=== PATIENT | male | born 1960 ===

== ENCOUNTER 2018-04-25 14:44 | Inpatient (IN) | payer OTHER ==
[2018-04-25] MEDS ORDERED: ACETAMINOPHEN TAB 325 MG TAB PO PRN (17:04)
[2018-04-25] MEDS ORDERED: ALPRAZolam 0.25 MG TAB PO PRN (17:04)
[2018-04-25] MEDS ORDERED: NALOXONE 0.4 MG/ML 1 ML VIAL IV PRN (17:04)
[2018-04-25] MEDS ORDERED: HYDROcodone/APAP 5-325MG 1 EACH TAB PO PRN (17:08)
[2018-04-25] MEDS ORDERED: ONDANSETRON 4 MG/2 ML VIAL IVP PRN (17:08)
[2018-04-25] MEDS ORDERED: TEMAZEPAM 15 MG CAP PO PRN (17:08)
[2018-04-25] MEDS ORDERED: MORPHINE SULFATE 2 MG/ML SYRINGE IVP PRN (17:24)
[2018-04-25 17:39] VITALS: BMI 40.1
--- NOTE | 2018-04-25 17:51 | XR ---
EXAMINATION TYPE: XR chest 1V portable DATE OF EXAM: 04/25/2018 COMPARISON: NONE HISTORY: Chest pain TECHNIQUE: Single frontal view of the chest is obtained. FINDINGS: There is some linear density at the left lung base. The other lung elder are clear. There is no heart failure. There is no sign of pleural effusion. IMPRESSION: Atelectasis at the left lung base. Normal heart.
[2018-04-25 18:01] LABS: INR 1.1 (<1.2)
[2018-04-25 18:02] LABS: Prothrombin Time 10.9 sec (9.0-12.0)
[2018-04-25 18:07] LABS: Albumin 3.8 g/dL (3.5-5.0); Basophils % (A) 0 %; Calcium 8.5 mg/dL (8.4-10.2); Eosinophils % (A) 0 %; HCT 40.3 % (39.0-53.0); HGB 14.1 gm/dL (13.0-17.5); Lymphocytes # (A) 1.1 k/uL (1.0-4.8); Lymphocytes % (A) 9 %; MCHC 35.1 g/dL (31.0-37.0); MCV 91.3 fL (80.0-100.0); Magnesium 2.3 mg/dL (1.6-2.3); Mean Platelet Volume 8.2; Monocytes # (A) 0.7 k/uL (0-1.0); Monocytes % (A) 6 %; Neutrophils # (A) 9.9 k/uL (1.3-7.7); Neutrophils % (A) 83 %; Phosphorus 4.8 mg/dL (2.5-4.5); Platelet Count 267 k/uL (150-450); Potassium 3.4 mmol/L (3.5-5.1); RBC 4.42 m/uL (4.30-5.90); RDW 12.7 % (11.5-15.5); Total Protein 6.8 g/dL (6.3-8.2)
[2018-04-25 18:11] LABS: Glucose,Whole Blood 284 mg/dL (75-99)
[2018-04-25] MEDS: SODIUM CHLORIDE 0.9% 1,000 ML IV SCH (18:14)
[2018-04-25] MEDS: INSULIN ASPART 100 UNIT/ML 1 ML 10 ML VIAL SQ SCH ×2 (18:14→20:17)
[2018-04-25 18:59] LABS: Appearance,Urine Clear (Clear); Bilirubin,Urine Negative (Negative); Blood,Urine Negative (Negative); Color,Urine Light Yellow; Glucose,Urine (UA) 4+ (Negative); Ketones,Urine Negative (Negative); Leukocyte Esterase,Urine Negative (Negative); Nitrite,Urine Negative (Negative); PH, Urine 5.5 (5.0-8.0); Protein,Urine Trace (Negative); Specific Gravity,Urine 1.007 (1.001-1.035); Urobilinogen,Urine <2.0 mg/dL (<2.0)
[2018-04-25] MEDS: INSULIN NPH/REG INSULIN 70/30 300 UNIT/3 ML VIAL SQ SCH (19:31)
[2018-04-25 20:09] LABS: Glucose,Whole Blood 478 mg/dL (75-99)
[2018-04-25 20:09] LABS: Glucose,Whole Blood 417 mg/dL (75-99)
[2018-04-25] MEDS: PANTOPRAZOLE 40 MG/10 ML VIAL IVP SCH (20:18)
[2018-04-25] MEDS: CARVEDILOL 12.5 MG TAB PO SCH (20:18)
[2018-04-25] MEDS: HEPARIN SODIUM,PORCINE 5,000 UNIT/ML 1 ML VIAL SQ SCH (20:18)
--- NOTE | 2018-04-25 21:37 | HP ---
HISTORY AND PHYSICAL CHIEF COMPLAINTS: Nausea, vomiting and renal failure. HISTORY OF PRESENT ILLNESS: This 57-year-old gentleman with a past medical history of diabetes type 2, history of chronic kidney disease, hypertension, hyperlipidemia, CHF, being followed by in the outpatient setting was apparently having nausea, vomiting, and feeling tired and weak for the last several days. The patient is unable to keep anything down and the patient presented to [facility] and subsequently patient referred to [facility] for further evaluation and treatment. The patient was found to have creatinine around 5 indicating acute renal failure. The patient also had some headache. Patient was taking Motrin for the same. The troponins are negative. Patient was also hypertensive. Blood pressure 77/40 after a bolus of 2 L of fluids, the blood pressure improved to 114/80. The patient has uncontrolled diabetes mellitus in the 400s and the patient was referred directly and admitted. The patient admitted as a direct admission for further evaluation and treatment. The CT scan did not show any acute abnormality. There is no history of fever, rigors. No history of headache, no history of any loss consciousness or seizures at this time. PAST MEDICAL HISTORY: History of CHF, chronic kidney disease, diabetes mellitus, hypertension, hyperlipidemia. MEDICATIONS: 1. Aspirin 81 mg daily. 2. Coreg 25 mg p.o. b.i.d. 3. Fenofibrate 135 mg p.o. daily. 4. Hyzaar 100/25 p.o. daily. 5. Lipitor 80 mg p.o. daily. 6. Norvasc 10 mg daily. 7. Novolin 70/30 7 units in the morning and 30 units in the evening. ALLERGIES: BEE STINGS. FAMILY HISTORY: History of CHF in the family. SOCIAL HISTORY: No history of smoking. No alcohol intake. REVIEW OF SYSTEMS: ENT: No diminished vision. No diminished hearing. CARDIOVASCULAR: As mentioned earlier. Respiration: No cough or hemoptysis. No shortness of breath. GI as mentioned earlier. mentioned earlier. Nervous system no numbness or weakness. Allergy/Immunology: No asthma hay fever. Musculoskeletal: As mentioned earlier. HEMATOLOGY/ONCOLOGY: No history of anemia. ENDOCRINE: As mentioned earlier. CONSTITUTIONAL: As mentioned earlier. Dermatology: Negative. Rheumatology: Negative. Psychiatry: As mentioned earlier. PHYSICAL EXAMINATION: Alert and oriented x3. The pulse is 74. Blood pressure 104/70, respiration 12, temperature 98.1, pulse ox 94% on room air. HEENT: Conjunctivae normal. Oral mucosa moist. NECK is no jugular venous distention. No carotid bruit. No lymph node enlargement. No thyroid enlargement Cardiovascular: S1-S2, no S3, no S4. RESPIRATORY: Breath sounds diminished in the bases. A few scattered rhonchi. No crackles. ABDOMEN: Soft, obese, nontender. No mass palpable. Legs no edema. No swelling. Nervous system: Higher functions as mentioned earlier. Moves all 4 limbs. No focal motor or sensory deficit. Lymphatics: No lymph nodes palpable in the neck, axillae or groin. Skin: No ulcer, rash or bleeding. Joints: No active deforming arthropathy. LABS: Previous labs are reviewed. Otherwise current labs are not available. ASSESSMENT: 1. Acute renal failure possibly combination of prerenal renal failure and dehydration, medication induced. 2. Diabetic nephropathy. 3. Diabetes mellitus type 2, uncontrolled with hyperglycemia. 4. History of congestive heart failure. 5. History of hypertension. 6. Hyperlipidemia. RECOMMENDATIONS AND DISCUSSION: In this 57-year-old gentleman who presented with multiple complex medical issues , at this time, I recommend to continue current medications, continue symptomatic treatment. I would recommend hold Hyzaar at this time and we will continue to monitor. I would also check a creatine kinase. Cardiology and Nephrology evaluations. Otherwise , I would also recommend a 2D echo with Doppler. Guarded prognosis because of the multiple medical issues and further recommendations to follow and we will monitor Accu- Cheks as well. See orders for details. further recommendations to follow. A copy of dictation being forwarded to who is the primary physician. MMODL / IJN: [id number] / PAWEL
[2018-04-26 07:00] LABS: Glucose,Whole Blood 119 mg/dL (75-99)
[2018-04-26 07:45] LABS: Calcium 8.4 mg/dL (8.4-10.2)
[2018-04-26 08:01] LABS: Basophils % (A) 0 %; Eosinophils # (A) 0.1 k/uL (0-0.7); Eosinophils % (A) 1 %; HCT 39.4 % (39.0-53.0); HGB 13.6 gm/dL (13.0-17.5); Lymphocytes # (A) 1.7 k/uL (1.0-4.8); Lymphocytes % (A) 18 %; MCH 31.6 pg (25.0-35.0); MCHC 34.5 g/dL (31.0-37.0); MCV 91.6 fL (80.0-100.0); Mean Platelet Volume 8.4; Monocytes # (A) 0.8 k/uL (0-1.0); Monocytes % (A) 8 %; Neutrophils # (A) 6.7 k/uL (1.3-7.7); Neutrophils % (A) 70 %; Platelet Count 251 k/uL (150-450); RDW 12.8 % (11.5-15.5); WBC 9.6 k/uL (3.8-10.6)
[2018-04-26] MEDS: INSULIN ASPART 100 UNIT/ML 1 ML 10 ML VIAL SQ SCH ×4 (08:48→21:00)
[2018-04-26] MEDS ORDERED: LOSARTAN-HCTZ 50-12.5 MG 1 EACH TAB PO SCH (09:00)
[2018-04-26] MEDS ORDERED: amLODIPine 10 MG TAB PO SCH (09:00)
[2018-04-26] MEDS: ATORVASTATIN 80 MG TAB PO SCH (09:04)
[2018-04-26] MEDS: SODIUM CHLORIDE 0.9% 1,000 ML IV SCH ×2 (09:04→17:39)
[2018-04-26] MEDS: ASPIRIN 81 MG PO SCH (09:04)
[2018-04-26] MEDS: FENOFIBRATE 160 MG TAB PO SCH (09:04)
[2018-04-26] MEDS: HEPARIN SODIUM,PORCINE 5,000 UNIT/ML 1 ML VIAL SQ SCH ×2 (09:05→21:00)
[2018-04-26] MEDS: PANTOPRAZOLE 40 MG/10 ML VIAL IVP SCH ×2 (09:05→21:00)
[2018-04-26] MEDS ORDERED: Potassium Replacement Protocol 1 EACH MISC MISCELLANE PRN (09:23)
[2018-04-26] MEDS ORDERED: INSULIN NPH/REG INSULIN 70/30 300 UNIT/3 ML VIAL SQ ONE (09:24)
[2018-04-26] MEDS: INSULIN NPH/REG INSULIN 70/30 300 UNIT/3 ML VIAL SQ SCH ×2 (09:24→17:39)
[2018-04-26] MEDS ORDERED: POTASSIUM CHLORIDE ER 20 MEQ TAB.ER PO STA (09:32)
[2018-04-26] MEDS: CARVEDILOL 12.5 MG TAB PO SCH ×2 (09:33→21:01)
--- NOTE | 2018-04-26 09:34 | P.NPCON ---
History of Present Illness - Reason for Consult acute renal failure - History of Present Illness Reason for consultation: Acute kidney injury History of present illness: Patient is a 57-year-old male seen in renal consultation for acute kidney injury. Unknown as to what his baseline renal function is. Creatinine was near 5 when he went to [facility] and is down to 3.02 today. Patient presented to [facility] with nausea and vomiting started a few days ago. Patient states he's not been able to keep any food down. Additionally he has history of hypertension and was taking Hyzaar at home. He denies use of NSAIDs. Patient was diagnosed with diabetes but a year ago. Patient received 2 L fluid bolus of [facility] and was subsequently sent to [facility]. He is currently maintained on normal saline at 75 mL an hour. Nausea and vomiting have resolved. He is tolerating clear liquid diet well. Denies abdominal pain. His blood pressure was initially in the systolic 70s and is now in 100s. He admits to good urine output. No hematuria or dysuria. Patient states his sister is currently on hemodialysis but is unsure of the cause. Vital signs are stable. General: The patient appeared well nourished and normally developed. HEENT: Head exam is unremarkable. Neck is without jugular venous distension. LUNGS: Lungs are clear to auscultation and percussion. Breath sounds decreased. HEART: Rate and Rhythm are regular. First and second heart sounds normal. No murmurs, rubs or gallops. ABDOMEN: Abdominal exam reveals normal bowel sounds. Non-tender and non- distended. No evidence of peritonitis. EXTREMITITES: No clubbing, cyanosis, or edema. Past Medical History Past Medical History: Heart Failure, Diabetes Mellitus, Hyperlipidemia, Hypertension, Renal Disease Additional Past Medical History / Comment(s): possibel sleep apnea History of Any Multi-Drug Resistant Organisms: None Reported Additional Past Surgical History / Comment(s): hernia surgeries Additional Past Anesthesia/Blood Transfusion Reaction / Comment(s): father had blood transfusion reaction Past Psychological History: No Psychological Hx Reported Smoking Status: Former smoker - Past Family History Father Family Medical History: Renal Disease Sister(s) Family Medical History: Renal Disease Medications and Allergies Home Medications Medication Instructions Recorded Confirmed Type Aspirin EC [Ecotrin Low Dose] 81 mg PO DAILY 04/25/18 04/25/18 History Atorvastatin [Lipitor] 80 mg PO DAILY 04/25/18 04/25/18 History Carvedilol [Coreg] 25 mg PO BID 04/25/18 04/25/18 History Fenofibrate,Micronized 134 mg PO DAILY 04/25/18 04/25/18 History [Fenofibrate] Insulin NPH Hum/Reg Insulin Hm 30 unit SQ AC-SUPPER 04/25/18 04/25/18 History [NovoLIN 70-30 100 UNIT/ML VIAL] Insulin NPH Hum/Reg Insulin Hm 70 unit SQ AC-BRKFST 04/25/18 04/25/18 History [NovoLIN 70-30 100 UNIT/ML VIAL] Losartan/Hydrochlorothiazide 1 tab PO DAILY 04/25/18 04/25/18 History [Hyzaar 100-25 Tablet] amLODIPine [Norvasc] 10 mg PO DAILY 04/25/18 04/25/18 History Allergies Allergy/AdvReac Type Severity Reaction Status Date / Time bee venom protein (honey bee) Allergy Anaphylaxis Verified 04/25/18 17:36 Physical Exam Vitals: Vital Signs Temp Pulse Resp BP Pulse Ox 04/26/18 07:05 98.5 F 70 16 107/72 95 04/26/18 03:21 77 18 04/25/18 23:24 77 18 04/25/18 23:23 98.9 F 77 18 105/61 98 04/25/18 20:00 85 18 04/25/18 19:00 98.8 F 85 18 90/58 96 04/25/18 17:19 98.1 F 74 12 107/70 94 L 04/25/18 16:57 98.1 F 74 12 104/70 94 L Intake and Output 04/25/18 04/26/18 04/26/18 22:59 06:59 14:59 Intake Total 465 Output Total 500 1200 Balance -35 -1200 Intake: Intake, IV Titration 225 Amount Sodium Chloride 0.9% 1, 225 000 ml @ 75 mls/hr IV . [id number] [facility] Rx#:[id number] Oral 240 Output: Urine 500 1200 Other: Voiding Method Toilet Toilet Toilet Urinal Urinal Urinal # Voids 1 1 Weight 108 kg 108 kg Results - Lab Results Most recent lab results Calcium 8.4 mg/dL (8.4-10.2) 04/26/18 06:20 Phosphorus 4.8 mg/dL (2.5-4.5) H 04/25/18 17:45 Magnesium 2.3 mg/dL (1.6-2.3) 04/25/18 17:45 04/26/18 06:20 04/26/18 06:20 Assessment and Plan Plan: Assessment: 1. Nonoliguric acute kidney injury mostly prerenal secondary to hypotension and intravascular volume depletion from nausea and vomiting. Creatinine was 5 on admission at [facility] and is down to 3.02 today. 2. Hypokalemia from poor oral intake and renal potassium losses. 3. Mild hyperphosphatemia from acute kidney injury. Expect improvement with improving renal function. 4. Hypovolemic hyponatremia improved with IV hydration. 5. Benign hypertension. Blood pressures currently on the lower side. 6. Diabetes mellitus. Plan: Continue normal saline at 75 mL an hour. Hold amlodipine for systolic blood pressure less than 120. I will discontinue Hyzaar for now. Advance diet as able to tolerate. Repeat electrolytes in the morning. Replace potassium. 60 mEq today. Thank you for the consultation. I will continue to follow the patient with you during his hospital stay.
[2018-04-26 11:50] LABS: Glucose,Whole Blood 396 mg/dL (75-99)
[2018-04-26 15:15] LABS: Glucose,Whole Blood 325 mg/dL (75-99)
[2018-04-26 16:44] LABS: Glucose,Whole Blood 373 mg/dL (75-99)
[2018-04-26 18:59] LABS: Glucose,Whole Blood 390 mg/dL (75-99)
[2018-04-27 06:58] LABS: Glucose,Whole Blood 138 mg/dL (75-99)
--- NOTE | 2018-04-27 07:26 | PN ---
PROGRESS NOTE DATE OF SERVICE: 04/26/2018 This 57-year-old gentleman admitted with acute on chronic renal failure secondary to dehydration and prerenal factors being closely monitored. Patient is on IV fluids. The creatinine is slightly better. The patient is also being closely monitored. No oliguric renal failure was noted. Creatinine is up to 3 at this time. The patient also had hypokalemia probably from a poor intake also. The patient closely monitored. Potassium supplementation. Nephrology evaluation in progress. PAST MEDICAL HISTORY: Reviewed. REVIEW OF SYSTEMS: CARDIOVASCULAR: No angina. RESPIRATORY: No cough. GI: As mentioned. : As mentioned. NERVOUS SYSTEM: No numbness or weakness. CURRENT MEDICATIONS: Reviewed and include: 1. Tylenol p.r.n. 2. [place] 5 mg q.h.s. 3. Xanax 0.5 q.6 hours. 4. Aspirin 81 mg. 5. Lipitor 80 mg daily. 6. Coreg 25 mg b.i.d. 7. Lofibra 160 mg daily. 8. Heparin 5 subcu b.i.d. 9. Insulin 70/30. 10.Morphine sulfate. 11.Narcan. 12.Zofran. 13.Protonix. 14.Restoril. PHYSICAL EXAM: Patient is alert and oriented x3. Pulse 80, blood pressure 96/60, respiration 16, temperature 98.4, pulse ox 94% on room air. HEENT: Conjunctivae normal. Oral mucosa moist. Neck is no jugular venous distention. No carotid bruit. No lymph node enlargement. CARDIOVASCULAR: S1, S2 muffled. RESPIRATORY: Breath sounds diminished in the bases. No rhonchi, no crackles. ABDOMEN: Soft, nontender. No mass. LEGS: No edema, no swelling NERVOUS SYSTEM: Higher functions as mentioned earlier. Moves all four limbs. Mild diffuse weakness. LYMPHATICS: No lymphadenopathy in the neck, axillae, groin. SKIN: No ulcer, rash, bleeding. LABS: CBC within normal. Creatinine 3.2, potassium 3, glucose 393, 325, 373. ASSESSMENT: 1. Acute renal failure possibly combination of prerenal factors, dehydration and medication induced, nonoliguric acute tubular necrosis. 2. Diabetic nephropathy. 3. Diabetes mellitus type 2, uncontrolled with hyperglycemia. 4. History of congestive heart failure. 5. History of hypertension. 6. Hyperlipidemia. 7. Hypokalemia. RECOMMENDATION: This 57-year-old gentleman who presented with multiple complex medical issues, will monitor the patient closely. Continue the current management and symptomatic treatment. Otherwise I would recommend continue with insulins. Continue with current medications. Continue with cautious IV hydration. Otherwise, patient also had a history of CHF also. The most recent chest x-ray only showed some atelectasis; no evidence of fluid overload. We will continue to monitor and prognosis guarded because of multiple complex medical issues. See orders for details. MMODL / IJN: [id number] /
[2018-04-27 08:00] LABS: Basophils % (A) 1 %; Eosinophils # (A) 0.1 k/uL (0-0.7); Eosinophils % (A) 2 %; HGB 12.8 gm/dL (13.0-17.5); Lymphocytes # (A) 1.3 k/uL (1.0-4.8); Lymphocytes % (A) 23 %; MCH 31.8 pg (25.0-35.0); MCHC 34.6 g/dL (31.0-37.0); Mean Platelet Volume 8.1; Monocytes # (A) 0.5 k/uL (0-1.0); Monocytes % (A) 8 %; Neutrophils # (A) 3.6 k/uL (1.3-7.7); Neutrophils % (A) 62 %; Platelet Count 178 k/uL (150-450); RBC 4.03 m/uL (4.30-5.90); RDW 12.8 % (11.5-15.5); WBC 5.8 k/uL (3.8-10.6)
[2018-04-27] MEDS: ATORVASTATIN 80 MG TAB PO SCH (08:15)
[2018-04-27] MEDS: FENOFIBRATE 160 MG TAB PO SCH (08:15)
[2018-04-27] MEDS: INSULIN NPH/REG INSULIN 70/30 300 UNIT/3 ML VIAL SQ SCH ×2 (08:15→17:34)
[2018-04-27] MEDS: CARVEDILOL 12.5 MG TAB PO SCH ×2 (08:15→20:34)
[2018-04-27] MEDS: ASPIRIN 81 MG PO SCH (08:15)
[2018-04-27] MEDS: PANTOPRAZOLE 40 MG/10 ML VIAL IVP SCH (08:15)
[2018-04-27] MEDS: HEPARIN SODIUM,PORCINE 5,000 UNIT/ML 1 ML VIAL SQ SCH ×2 (08:16→20:34)
[2018-04-27] MEDS: INSULIN ASPART 100 UNIT/ML 1 ML 10 ML VIAL SQ SCH ×4 (08:16→20:34)
[2018-04-27 08:17] LABS: Calcium 8.1 mg/dL (8.4-10.2); Potassium 3.1 mmol/L (3.5-5.1)
[2018-04-27 10:08] LABS: Hemoglobin A1C 14.2 % (4.0-6.0)
[2018-04-27 12:16] LABS: Glucose,Whole Blood 203 mg/dL (75-99)
[2018-04-27] MEDS ORDERED: POTASSIUM CHLORIDE ER 20 MEQ TAB.ER PO STA (12:22)
[2018-04-27] MEDS: SODIUM CHLORIDE 0.9% 1,000 ML IV SCH (12:27)
--- NOTE | 2018-04-27 15:20 | PN ---
PROGRESS NOTE DATE OF SERVICE: 04/27/2018 INTERIM HISTORY: This 57-year-old gentleman who was admitted with acute renal failure also had diabetic nephropathy. The patient also had significant hypokalemia. Patient's potassium is being supplemented. No chest pain. No palpitations. No fever. PHYSICAL EXAM: Alert and oriented times three. Pulse is 78. Blood pressure 130/84, respiration 16, temperature 98.6, pulse ox 98% on room air. HEENT: Conjunctivae normal. Oral mucosa is moist. Neck is no jugular venous distention. No carotid bruit. No lymph node enlargement. Cardiovascular system: S1, S2 muffled. RESPIRATORY: Breath sounds diminished in the bases. No rhonchi. No crackles. ABDOMEN: Soft, obese, nontender. Legs no edema. No swelling. central nervous system: No focal deficits. LABS: WBC 5.8, hemoglobin 12.8, sodium 130, potassium 3.1, creatinine is 2.3. ASSESSMENT: 1. Acute renal failure possibly combination of prerenal factors, dehydration, medication induced and nonoliguric acute tubular necrosis. 2. Diabetic nephropathy. 3. Persistent hypokalemia. 4. Diabetes mellitus type 2, uncontrolled with hyperglycemia. 5. History of congestive heart failure. 6. Hypertension. 7. Hyperlipidemia. RECOMMENDATIONS AND DISCUSSION: Recommend to continue current medications, management and symptomatic treatment. Otherwise at this time monitor blood sugars closely, which is fluctuating. Potassium supplementation. I would recommend 60 mg p.o. potassium and repeat lytes at 6 p.m. and continue to monitor. I would also recommend recheck magnesium also to rule out hypomagnesemia. The overall prognosis guarded. Nephrology input appreciated. Patient will require outpatient Nephrology followup possibly at [facility] and possible discharge in a.m. further recommendations to follow. MMODL / IJN: [id number] /
--- NOTE | 2018-04-27 16:12 | PN ---
PROGRESS NOTE Patient is seen for followup for acute kidney injury. His renal function is currently improving. Serum creatinine is down to 2.3 from 3.7 on initial admission. We do not have any previous labs available for comparison. Patient had been on IV fluids. He was on 75 mL/hour of normal saline, currently not on any fluids. Overall patient states he is feeling better. He has been voiding well. On examination, blood pressure is 134/84, heart rate 78 per minute. He is afebrile. EXAMINATION OF THE HEART: S1, S2. EXAMINATION OF LUNGS: Bilateral breath sounds are heard. ABDOMEN: Soft, non-tender. Examination of lower extremities shows no evidence of edema. [employer] exam is grossly intact. Labs reveal sodium of 139, potassium 3.1, chloride 103, BUN 39, serum creatinine 2.3, hemoglobin 12.8 g/dL. ASSESSMENT: 1. Acute kidney injury, prerenal, with associated intravascular volume depletion, currently improving. 2. Hypokalemia, being replaced. 3. Rule out chronic kidney disease. 4. Type 2 diabetes with uncontrolled blood sugars. 5. History of congestive heart failure. PLAN: Continue with potassium replacement. Patient can be discharged and follow up as outpatient with Nephrology in about 2 weeks' time. He can follow up at the [place] office. MMODL / IJN: [id number] /
[2018-04-27 17:21] LABS: Glucose,Whole Blood 209 mg/dL (75-99)
[2018-04-27] MEDS: PANTOPRAZOLE 40 MG TABLET PO SCH (17:34)
[2018-04-27 18:37] LABS: Calcium 8.2 mg/dL (8.4-10.2); Potassium 3.6 mmol/L (3.5-5.1)
[2018-04-27 20:17] LABS: Glucose,Whole Blood 281 mg/dL (75-99)
[2018-04-28] MEDS: SODIUM CHLORIDE 0.9% 1,000 ML IV SCH (00:48)
[2018-04-28 07:00] LABS: Glucose,Whole Blood 177 mg/dL (75-99)
[2018-04-28] MEDS: INSULIN ASPART 100 UNIT/ML 1 ML 10 ML VIAL SQ SCH ×2 (07:12→12:32)
[2018-04-28] MEDS: INSULIN NPH/REG INSULIN 70/30 300 UNIT/3 ML VIAL SQ SCH (07:13)
[2018-04-28] MEDS: CARVEDILOL 12.5 MG TAB PO SCH (07:13)
[2018-04-28] MEDS: PANTOPRAZOLE 40 MG TABLET PO SCH (07:13)
[2018-04-28] MEDS: ASPIRIN 81 MG PO SCH (07:13)
[2018-04-28] MEDS: ATORVASTATIN 80 MG TAB PO SCH (07:13)
[2018-04-28] MEDS: HEPARIN SODIUM,PORCINE 5,000 UNIT/ML 1 ML VIAL SQ SCH (07:14)
[2018-04-28] MEDS: FENOFIBRATE 160 MG TAB PO SCH (07:14)
[2018-04-28 08:57] LABS: Basophils % (A) 0 %; Eosinophils # (A) 0.2 k/uL (0-0.7); Eosinophils % (A) 3 %; HCT 35.5 % (39.0-53.0); HGB 12.2 gm/dL (13.0-17.5); Lymphocytes # (A) 1.3 k/uL (1.0-4.8); Lymphocytes % (A) 24 %; MCH 32.2 pg (25.0-35.0); MCHC 34.4 g/dL (31.0-37.0); MCV 93.7 fL (80.0-100.0); Mean Platelet Volume 8.1; Monocytes # (A) 0.5 k/uL (0-1.0); Monocytes % (A) 9 %; Neutrophils # (A) 3.4 k/uL (1.3-7.7); Neutrophils % (A) 62 %; Platelet Count 174 k/uL (150-450); RBC 3.79 m/uL (4.30-5.90); RDW 12.8 % (11.5-15.5); WBC 5.5 k/uL (3.8-10.6)
[2018-04-28 09:08] LABS: Calcium 8.2 mg/dL (8.4-10.2); Potassium 3.6 mmol/L (3.5-5.1)
[2018-04-28 09:14] VITALS: RESP 16
--- NOTE | 2018-04-28 09:45 | ECHOF ---
Referral Reason:chf MEASUREMENTS -------- HEIGHT: 170.2 cm WEIGHT: 108.0 kg BP: 118/68 RVIDd: 3.6 cm (< 3.3) IVSd: 1.3 cm (0.6 - 1.1) LVIDd: 4.8 cm (3.9 - 5.3) LVPWd: 1.4 cm (0.6 - 1.1) IVSs: 2.0 cm LVIDs: 3.1 cm LVPWs: 1.9 cm LA Diam: 3.2 cm (2.7 - 3.8) Ao Diam: 3.4 cm (2.0 - 3.7) LA Diam: 4.3 cm (2.7 - 3.8) MV E Paulo: 0.66 m/s MV DecT: 202 ms MV A Paulo: 0.58 m/s MV E/A Ratio: 1.14 FINDINGS -------- Sinus rhythm. This was a techncally difficult study with suboptimal views, , Lumason utilized for enhancement of im ages. The left ventricular size is normal. There is mild concentric left ventricular hypertrophy. Overa ll left ventricular systolic function is normal with, an EF between 55 - 60 %. The right ventricle is mildly enlarged. The left atrial size is normal. The right atrial size is normal. 5.0mg OF Lumason UTLIZED: 2 OR MORE WALL SEGMENTS NOT VISUALIZED. The aortic valve is trileaflet, and appears structurally normal. No aortic stenosis or regurgitation. Mild mitral annular calcification present. Mild mitral regurgitation is present. Mild tricuspid regurgitation present. There is no evidence of pulmonary hypertension. The right v entricular systolic pressure, as measured by Doppler, is {RVSP}. The pulmonic valve was not well visualized. The aortic root size is normal. There is no pericardial effusion. CONCLUSIONS -------- 1. This was a techncally difficult study with suboptimal views, , Lumason utilized for enhancement of images. 2. The left ventricular size is normal. 3. There is mild concentric left ventricular hypertrophy. 4. Overall left ventricular systolic function is normal with, an EF between 55 - 60 %. 5. The right ventricle is mildly enlarged. 6. The left atrial size is normal. 7. The right atrial size is normal. 8. 5.0mg OF Lumason UTLIZED: 2 OR MORE WALL SEGMENTS NOT VISUALIZED. 9. The aortic valve is trileaflet, and appears structurally normal. No aortic stenosis or regurgitati on. 10. Mild mitral annular calcification present. 11. Mild mitral regurgitation is present. 12. Mild tricuspid regurgitation present. 13. There is no evidence of pulmonary hypertension. 14. The right ventricular systolic pressure, as measured by Doppler, is {RVSP}. 15. The pulmonic valve was not well visualized. 16. The aortic root size is normal. 17. There is no pericardial effusion. DREDGE HAND: Dayna Parham RDCS
--- NOTE | 2018-04-28 14:17 | P.DS ---
Providers Date of admission: 04/25/18 16:52 Attending physician: Clifford Chau Consults: 04/25/18 17:07 Consult Physician Routine Consulting Provider: Hannah Hair Consult Reason/Comments: arf Do you want consulting provider notified?: Yes Primary care physician: Stated None Hospital Course: 57-year-old pleasant gentleman was admitted for acute renal failure does have chronic kidney disease from diabetic nephropathy acute renal failure with creatinine going down from 3.5-2. Patient's acute renal failure is secondary to intravascular depletion and low blood pressure from his antidepressants medications which were discontinued. Patient does have some proteinuria will benefit from KOBE inhibitor and it is in the center [place] down the line. Patient will follow-up with primary care physician and nephrology as an outpatient. PHYSICAL EXAMINATION: GENERAL: The patient is alert and oriented x3, not in any acute distress. Well developed, well nourished. HEENT: Pupils are round and equally reacting to light. EOMI. No scleral icterus. No conjunctival pallor. Normocephalic, atraumatic. No pharyngeal erythema. No thyromegaly. CARDIOVASCULAR: S1 and S2 present. No murmurs, rubs, or gallops. PULMONARY: Chest is clear to auscultation, no wheezing or crackles. ABDOMEN: Soft, nontender, nondistended, normoactive bowel sounds. No palpable organomegaly. MUSCULOSKELETAL: No joint swelling or deformity. EXTREMITIES: No cyanosis, clubbing, or pedal edema. NEUROLOGICAL: Gross neurological examination did not reveal any focal deficits. SKIN: No rashes. For rest of the other chronic medical problems and hospitalization course please refer to the progress note from Dr. Chau yesterday Plan - Discharge Summary Discharge Rx Participant: No New Discharge Prescriptions: Continue Fenofibrate,Micronized [Fenofibrate] 134 mg PO DAILY Atorvastatin [Lipitor] 80 mg PO DAILY Carvedilol [Coreg] 25 mg PO BID Aspirin EC [Ecotrin Low Dose] 81 mg PO DAILY Insulin NPH Hum/Reg Insulin Hm [NovoLIN 70-30 100 UNIT/ML VIAL] 70 unit SQ AC -BRKFST Insulin NPH Hum/Reg Insulin Hm [NovoLIN 70-30 100 UNIT/ML VIAL] 30 unit SQ AC -SUPPER Discontinued amLODIPine [Norvasc] 10 mg PO DAILY Losartan/Hydrochlorothiazide [Hyzaar 100-25 Tablet] 1 tab PO DAILY Discharge Medication List Aspirin EC [Ecotrin Low Dose] 81 mg PO DAILY 04/25/18 [History] Atorvastatin [Lipitor] 80 mg PO DAILY 04/25/18 [History] Carvedilol [Coreg] 25 mg PO BID 04/25/18 [History] Fenofibrate,Micronized [Fenofibrate] 134 mg PO DAILY 04/25/18 [History] Insulin NPH Hum/Reg Insulin Hm [NovoLIN 70-30 100 UNIT/ML VIAL] 30 unit SQ AC- SUPPER 04/25/18 [History] Insulin NPH Hum/Reg Insulin Hm [NovoLIN 70-30 100 UNIT/ML VIAL] 70 unit SQ AC- BRKFST 04/25/18 [History] Follow up Appointment(s)/Referral(s): Hannah Hair MD [STAFF PHYSICIAN] - 2 Weeks (Make appointment at the [place] site) Discharge Disposition: HOME SELF-CARE
[2018-04-28 14:27] VITALS: BP 134/80; PULSE 78; TEMP 98.4
--- NOTE | 2018-04-28 20:26 | PN ---
PROGRESS NOTE Patient is seen for followup for acute kidney injury and possible chronic kidney disease. The patient denies any significant complaints. He can be discharged from nephrology standpoint with plans to follow up as outpatient. Serum creatinine has decreased from 3.7 on admission to 2.0 today. We do not have any previous labs available for comparison. Currently patient is not on any IV fluids. His UA had shown trace protein. PHYSICAL EXAMINATION: Blood pressure is 128/86, heart rate 71 per minute. Patient is afebrile. Examination of the heart S1, S2. Examination of lungs bilateral breath sounds are heard. Abdomen is soft, nontender. Examination lower extremities shows no evidence of edema. OPERATIONS PLANNER exam is grossly intact. LABS: Show sodium 140, potassium 3.6, chloride 106, BUN 29, serum creatinine 2.03, hemoglobin 12.2 g/dL. ASSESSMENT: 1. Acute kidney injury prerenal currently improved. A baseline creatinine is not available. Patient will need outpatient followup for possible underlying chronic kidney disease. 2. Hypertension, controlled. 3. Type 2 diabetes with uncontrolled blood sugars, currently better. 4. Hypokalemia, status post replacement. PLAN: The patient is stable for discharge. Follow up as outpatient in about 2 weeks time. MMODL / IJN: [id number] /
--- NOTE | 2018-04-30 13:33 | CDI ---
Last Revision, July 2017 Documentation Clarification Form Date: 04/30/2018 1:01:37 PM From: Wendy Vazquez Phone: If you have a question regarding this query, please contact Milli Jay at [phone] between 8am and 5pm. Admit Date: 04/25/2018 4:52:00 PM Patient Name: Jackson Steiner Visit Number: [id number] Discharge Date: 04/28/18 ATTENTION: The Clinical Documentation Specialists (CDI) and [facility] Coding Staff appreciate your assistance in clarifying documentation. Please respond to the clarification below the line at the bottom and electronically sign. The CDI & [facility] Coding staff will review the response and follow-up if needed. Please note: Queries are made part of the Legal Health Record. If you have any questions, please contact the author of this message via ITS. Kya Wing MD History of congestive heart failure is documented in the H&P and the 04/25 - 04/27 progress notes. History/Risk Factors: Patient has a history of hypertension and diabetes and is a former smoker. Echocardiogram Results: Overall left ventricular systolic function is normal with an EF between 55 - 60%. Treatment: Patient is on Hyzaar at home. In your professional opinion, can you please clarify the type of CHF if known? Systolic Heart Failure: Diastolic Heart Failure: Systolic & Diastolic Heart Failure: Unable to Determine Other, please specify Diastolic Heart Failure MTDD
--- NOTE | 2018-04-30 13:49 | CDI ---
Last Revision, July 2017 Documentation Clarification Form Date: 04/30/18 From: Wendy Vazquez Phone: If you have a question regarding this query, please contact Milli Jay at [phone] between 8am and 5pm. Admit Date: 04/25/2018 4:52:00 PM Patient Name: Jackson Steiner Visit Number: [id number] Discharge Date: 04/28/18 ATTENTION: The Clinical Documentation Specialists (CDI) and [facility] Coding Staff appreciate your assistance in clarifying documentation. Please respond to the clarification below the line at the bottom and electronically sign. The CDI & [facility] Coding staff will review the response and follow-up if needed. Please note: Queries are made part of the Legal Health Record. If you have any questions, please contact the author of this message via ITS. Kya Wing MD Chronic kidney disease is documented in the H&P, discharge summary and in the 04/26 progress note. History/Risk Factors: Patient has a history of hypertension and diabetes. The patient was admitted with acute kidney failure. Clinical Indicators: Elevated GFR. Current BUN/CR/GFR: Admite 66/3.70/20 Patients Baseline: BUN/CR/GFR: On discharge: /.03/ IVF: Sodium Chloride 1,000 mls @ 75 mls/hr Nephrology Consult: Dr. Salazar documents nonoliguric acute kidney injury mostly prerenal. In order to capture the severity of condition, please clarify if the condition signifies: Acute Renal Failure Acute on Chronic Renal Failure(specify stage if chronic): Chronic Renal Failure(please specify): CKD Stage 1 (GFR > 90) CKD Stage 2 (GFR 60-89) CKD Stage 3 (GFR 30-59) CKD Stage 4 (GFR 15-29) CKD Stage 5 (GFR <15) ESRD Other, please specify Unable to determine CKD Stage 3 (GFR 30-59) MTDD
== END 2018-04-28 15:57 | disposition home or self-care (01) | DRG 683 ==
LOC: 3SUR 16:52
PROVIDERS: ADMIT Hospitalist; ATTEND Hospitalist
DX: N17.0 Acute kidney failure with tubular necrosis (principal); E87.1 Hypo-osmolality and hyponatremia; I50.32 Chronic diastolic (congestive) heart failure; E11.22 Type 2 diabetes mellitus with diabetic chronic kidney disease; E11.65 Type 2 diabetes mellitus with hyperglycemia; N18.3 Chronic kidney disease, stage 3 (moderate); E78.5 Hyperlipidemia, unspecified; E83.39 Other disorders of phosphorus metabolism; E86.0 Dehydration; E87.6 Hypokalemia; G47.30 Sleep apnea, unspecified; T50.905A Adverse effect of unspecified drugs, medicaments and biological substances, initial encounter; Z79.4 Long term (current) use of insulin; Z79.899 Other long term (current) drug therapy; Z79.82 Long term (current) use of aspirin; Z87.891 Personal history of nicotine dependence; Z82.49 Family history of ischemic heart disease and other diseases of the circulatory system; Z84.1 Family history of disorders of kidney and ureter; Y92.009 Unspecified place in unspecified non-institutional (private) residence as the place of occurrence of the external cause
CPT/HCPCS: 71045; 80048; 80053; 81003; 82150; 82550; 83036; 83690; 83735; 83880; 84100; 84484; 85025; 85610; 93005; 93306

== ENCOUNTER 2021-09-29 14:42 | Observation (INO) | payer OTHER ==
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
[2021-09-29 16:28] LABS: Amphetamine Screen,Urine Not Detected (NotDetected); Barbiturate Screen,Urine Not Detected (NotDetected); Benzodiazepines Screen,Urine Not Detected (NotDetected); Cocaine Screen,Urine Not Detected (NotDetected); Methadone Screen, Urine Not Detected (NotDetected); Opiate Screen,Urine Not Detected (NotDetected); Oxycodone Screen, Urine Not Detected (NotDetected); Phencyclidine Screen,Urine Not Detected (NotDetected); Tricyclic Antidepressant,Urine Not Detected (NotDetected); Urn Cannabinoid Scrn Not Detected (NotDetected)
[2021-09-29] MEDS ORDERED: SODIUM CHLORIDE 0.9% 500 ML 500 ML IV STA (16:32)
[2021-09-29] MEDS ORDERED: LABETALOL 5 MG/ML VIAL MDV IVP STA ×2 (17:19→20:13)
[2021-09-29 17:30] LABS: Albumin 3.9 g/dL (3.5-5.0); Calcium 9.5 mg/dL (8.4-10.2); Potassium 3.6 mmol/L (3.5-5.1); Total Bilirubin 1.4 mg/dL (0.2-1.3); Total Protein 7.2 g/dL (6.3-8.2)
[2021-09-29 18:40] LABS: Basophils # (A) 0.1 k/uL (0-0.2); Basophils % (A) 0 %; Eosinophils % (A) 0 %; HCT 46.7 % (39.0-53.0); HGB 16.9 gm/dL (13.0-17.5); Lymphocytes # (A) 1.5 k/uL (1.0-4.8); Lymphocytes % (A) 8 %; MCH 33.6 pg (25.0-35.0); MCHC 36.3 g/dL (31.0-37.0); MCV 92.6 fL (80.0-100.0); Mean Platelet Volume 8.6; Monocytes # (A) 1.5 k/uL (0-1.0); Monocytes % (A) 8 %; Neutrophils # (A) 16.1 k/uL (1.3-7.7); Neutrophils % (A) 84 %; Platelet Count 238 k/uL (150-450); RBC 5.04 m/uL (4.30-5.90); RDW 12.9 % (11.5-15.5); WBC 19.2 k/uL (3.8-10.6)
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
[2021-09-29 19:25] LABS: Amorphous Sediment,Urine Rare /hpf; Appearance,Urine Clear (Clear); Bilirubin,Urine Negative (Negative); Blood,Urine Trace (Negative); Color,Urine Yellow; Glucose,Urine (UA) Negative (Negative); Hyaline Casts,Urine 1 /lpf (0-2); Ketones,Urine Negative (Negative); Leukocyte Esterase,Urine Negative (Negative); Mucus,Urine Rare /hpf; Nitrite,Urine Negative (Negative); Protein,Urine 2+ (Negative); RBC,Urine 1 /hpf (0-5); Specific Gravity,Urine 1.007 (1.001-1.035); Squamous Epithelial Cell,Urine <1 /hpf (0-4); Urobilinogen,Urine <2.0 mg/dL (<2.0); WBC,Urine 4 /hpf (0-5)
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
[2021-09-29] MEDS ORDERED: SODIUM CHLORIDE 0.9% 1,000 ML IV ONE (20:13)
[2021-09-29] MEDS ORDERED: NALOXONE 0.4 MG/ML 1 ML VIAL IV PRN (20:22)
[2021-09-29] MEDS ORDERED: cefTRIAXone IN SWFI 1,000 MG/10 ML SYRINGE IVP STA (20:35)
[2021-09-29] MEDS: SODIUM CHLORIDE 0.9% 1,000 ML IV SCH (21:23)
[2021-09-29] MEDS: carvediloL 12.5 MG TAB PO SCH (21:26)
[2021-09-29] MEDS ORDERED: ONDANSETRON 4 MG/2 ML VIAL IVP STA (21:35)
[2021-09-29] MEDS: HEPARIN SODIUM,PORCINE/PF 5,000 UNIT/0.5 ML SYRINGE SQ SCH (23:38)
[2021-09-30] MEDS: IBUPROFEN 600 MG TAB PO PRN ×2 (00:09→11:31)
[2021-09-30 06:54] LABS: Glucose,Whole Blood 137 mg/dL (75-99)
[2021-09-30 07:30] LABS: Basophils # (A) 0.1 k/uL (0-0.2); Basophils % (A) 1 %; Eosinophils # (A) 0.4 k/uL (0-0.7); Eosinophils % (A) 4 %; HCT 42.9 % (39.0-53.0); HGB 15.3 gm/dL (13.0-17.5); Lymphocytes # (A) 1.4 k/uL (1.0-4.8); Lymphocytes % (A) 13 %; MCHC 35.6 g/dL (31.0-37.0); MCV 92.5 fL (80.0-100.0); Mean Platelet Volume 7.6; Monocytes % (A) 9 %; Neutrophils # (A) 7.6 k/uL (1.3-7.7); Neutrophils % (A) 72 %; Platelet Count 228 k/uL (150-450); RBC 4.64 m/uL (4.30-5.90); RDW 12.9 % (11.5-15.5); WBC 10.5 k/uL (3.8-10.6)
[2021-09-30 07:49] LABS: Calcium 8.7 mg/dL (8.4-10.2); Potassium 3.8 mmol/L (3.5-5.1)
[2021-09-30] MEDS: carvediloL 12.5 MG TAB PO SCH ×2 (09:02→16:50)
[2021-09-30] MEDS: ASPIRIN 81 MG PO SCH (09:02)
[2021-09-30] MEDS: HEPARIN SODIUM,PORCINE/PF 5,000 UNIT/0.5 ML SYRINGE SQ SCH ×2 (09:03→16:50)
[2021-09-30] MEDS: ATORVASTATIN 80 MG TAB PO SCH (09:03)
[2021-09-30 11:21] LABS: Glucose,Whole Blood 113 mg/dL (75-99)
[2021-09-30] MEDS: SODIUM CHLORIDE 0.9% 1,000 ML IV SCH ×2 (11:23→20:07)
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
[2021-09-30] MEDS: PANTOPRAZOLE 40 MG/10 ML VIAL IVP SCH (16:50)
[2021-09-30 17:26] LABS: Glucose,Whole Blood 136 mg/dL (75-99)
[2021-09-30] MEDS: MIRTAZAPINE 15 MG TAB PO SCH (20:06)
[2021-09-30 20:08] LABS: Glucose,Whole Blood 137 mg/dL (75-99)
[2021-10-01] MEDS: HEPARIN SODIUM,PORCINE/PF 5,000 UNIT/0.5 ML SYRINGE SQ SCH ×3 (00:19→16:43)
[2021-10-01] MEDS: IBUPROFEN 600 MG TAB PO PRN (04:56)
[2021-10-01 07:07] LABS: Glucose,Whole Blood 125 mg/dL (75-99)
[2021-10-01 09:21] LABS: African American GFR (CKD) 66 (>60 ml/min/1.73 sqM); Anion Gap 6 mmol/L; Blood Urea Nitrogen 10 mg/dL (9-20); Calcium 8.8 mg/dL (8.4-10.2); Carbon Dioxide 27 mmol/L (22-30); Chloride 105 mmol/L (98-107); Glucose 158 mg/dL (74-99); Magnesium 1.9 mg/dL (1.6-2.3); Non-African American GFR(CKD) 57 (>60 ml/min/1.73 sqM); Potassium 4.1 mmol/L (3.5-5.1); Sodium 138 mmol/L (137-145)
[2021-10-01] MEDS: PANTOPRAZOLE 40 MG/10 ML VIAL IVP SCH (09:25)
[2021-10-01] MEDS: ATORVASTATIN 80 MG TAB PO SCH (09:49)
[2021-10-01] MEDS: LOSARTAN 50 MG TAB PO SCH (09:49)
[2021-10-01] MEDS: ASPIRIN 81 MG PO SCH (09:49)
[2021-10-01] MEDS: hydroCHLOROthiazide 25 MG TAB PO SCH (09:49)
[2021-10-01] MEDS: carvediloL 12.5 MG TAB PO SCH (09:54)
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
[2021-10-01] MEDS ORDERED: IOPAMIDOL CONTRAST (ORAL USE) VIAL PO PRN (10:18)
[2021-10-01 10:56] LABS: Basophils # (A) 0.1 k/uL (0-0.2); Basophils % (A) 1 %; Eosinophils # (A) 0.4 k/uL (0-0.7); Eosinophils % (A) 4 %; HCT 43.7 % (39.0-53.0); Lymphocytes # (A) 1.3 k/uL (1.0-4.8); Lymphocytes % (A) 12 %; MCH 32.6 pg (25.0-35.0); MCHC 34.3 g/dL (31.0-37.0); Mean Platelet Volume 8.4; Monocytes # (A) 0.7 k/uL (0-1.0); Monocytes % (A) 6 %; Neutrophils # (A) 8.4 k/uL (1.3-7.7); Neutrophils % (A) 77 %; Platelet Count 221 k/uL (150-450); RDW 12.9 % (11.5-15.5)
--- NOTE | 2021-10-01 11:12 | P.PN ---
Subjective Progress Note Date: 10/01/21 CHIEF COMPLAINT: Abdominal pain HISTORY OF PRESENT ILLNESS: Patient lying in bed. He is complaining of left lower quadrant and lower mid abdominal pain. Denies any nausea or vomiting. He reports several days since his last bowel movement. He is having flatus. He has had elevated blood pressures. He's currently on a heart healthy diet. Afebrile. Elevated BP. Patient reports that his pain has not improved. PHYSICAL EXAM: VITAL SIGNS: Reviewed. GENERAL: Well-developed in no acute distress. HEENT: No sclera icterus. Extraocular movements grossly intact. Moist buccal mucosa. Head is atraumatic, normocephalic. ABDOMEN: Soft. Nondistended. Tenderness with palpation of the left lower quadrant and lower mid abdomen NEUROLOGIC: Alert and oriented. Cranial nerves II through XII grossly intact. ASSESSMENT: 1. Abdominal pain in the left lower quadrant and lower mid abdomen 2. Suicide attempt PLAN: -Repeat a computed tomography scan of abdomen and pelvis with oral contrast -Further recommendations forthcoming per CAT scan results -Continue supportive care -Continue to monitor Physician Career Orientation Teacher note has been reviewed by physician. Signing provider agrees with the documented findings, assessment, and plan of care. Objective - Vital Signs Vital signs: Vital Signs Temp 98.1 F 10/01/21 07:46 Pulse 67 10/01/21 07:46 Resp 16 10/01/21 07:46 BP 172/100 10/01/21 07:46 Pulse Ox 98 10/01/21 07:46 Intake & Output 09/30/21 10/01/21 10/01/21 18:59 06:59 18:59 Intake Total 1140 Balance 1140 Intake: Intake, IV Titration 900 Amount Sodium Chloride 0.9% 1, 900 000 ml @ 75 mls/hr IV . [id number] [facility] Rx#:[id number] Oral 240 Other: Voiding Method Toilet # Voids 1 2 1 - Labs CBC & Chem 7: 10/01/21 08:22 10/01/21 08:22 Labs: Abnormal Lab Results - Last 24 Hours (Table) 09/30/21 09/30/21 09/30/21 Range/Units 07:03 11:19 17:24 WBC (3.8-10.6) k/uL Neutrophils # (1.3-7.7) k/uL Creatinine (0.66-1.25) mg/dL Glucose (74-99) mg/dL POC Glucose (mg/dL) 113 H 136 H (75-99) mg/dL Procalcitonin 0.17 H (0.02-0.09) ng/mL 09/30/21 10/01/21 10/01/21 Range/Units 20:07 07:06 08:22 WBC (3.8-10.6) k/uL Neutrophils # (1.3-7.7) k/uL Creatinine 1.35 H (0.66-1.25) mg/dL Glucose 158 H (74-99) mg/dL POC Glucose (mg/dL) 137 H 125 H (75-99) mg/dL Procalcitonin (0.02-0.09) ng/mL 10/01/21 Range/Units 08:22 WBC 11.0 H (3.8-10.6) k/uL Neutrophils # 8.4 H (1.3-7.7) k/uL Creatinine (0.66-1.25) mg/dL Glucose (74-99) mg/dL POC Glucose (mg/dL) (75-99) mg/dL Procalcitonin (0.02-0.09) ng/mL Microbiology - Last 24 Hours (Table) 09/29/21 21:00 Blood Culture - Preliminary Blood No Growth after 24 hours 09/29/21 21:20 Blood Culture - Preliminary Blood No Growth after 24 hours
[2021-10-01 11:28] LABS: Glucose,Whole Blood 123 mg/dL (75-99)
[2021-10-01] MEDS: amLODIPine 5 MG TAB PO SCH ×2 (12:21→22:20)
[2021-10-01] MEDS: SODIUM CHLORIDE 0.9% 1,000 ML IV SCH ×2 (14:03→17:58)
--- NOTE | 2021-10-01 14:27 | CT ---
EXAMINATION TYPE: CT abdomen pelvis wo con DATE OF EXAM: 10/01/2021 HISTORY: Abdominal pain. CT DLP: 1191 mGycm. Automated Exposure Control for Dose Reduction was Utilized. TECHNIQUE: CT scan of the abdomen and pelvis is performed with oral but without IV contrast. COMPARISON: CT abdomen and pelvis 2 days ago FINDINGS: Within the limitations of a non-contrast study, the following observations are made. LUNG BASES: No significant abnormality is appreciated. LIVER/GB: No significant abnormality is appreciated. PANCREAS: No significant abnormality is seen. SPLEEN: No significant abnormality is seen. ADRENALS: No significant abnormality is seen. KIDNEYS: Cortical thinning in both kidneys is seen. There are scattered small simple appearing thin-w alled cyst bilaterally. Some are greater density than simple fluid and thus nonspecific but favor jhony ign given small size. No renal calculi. No intraluminal calculi in the bladder. No hydronephrosis. So me volume loss lower pole of left kidney redemonstrated. BOWEL: Oral contrast does not reach level of the terminal ileum making evaluation of distal bowel sli ghtly suboptimal. No suspicious small or large bowel dilatation. GENITAL ORGANS: Prostate gland measures upper limits of normal in size. Adjacent scattered pelvic phl ebolith redemonstrated. LYMPH NODES: No greater than 1cm abdominal or pelvic lymph nodes are appreciated. OSSEOUS STRUCTURES: Moderate multilevel spurring in the thoracic spine. Facet arthropathy lower lumba r levels. OTHER: Mild calcified plaque of the aorta extends into branch vessels. IMPRESSION: No bowel obstruction. No suspicious new or acute finding from 2 days earlier.
[2021-10-01 17:19] LABS: Glucose,Whole Blood 101 mg/dL (75-99)
[2021-10-01 19:56] LABS: Glucose,Whole Blood 101 mg/dL (75-99)
[2021-10-01] MEDS: MIRTAZAPINE 15 MG TAB PO SCH (22:20)
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
[2021-10-02] MEDS: HEPARIN SODIUM,PORCINE/PF 5,000 UNIT/0.5 ML SYRINGE SQ SCH ×4 (04:08→23:48)
[2021-10-02 06:59] LABS: Glucose,Whole Blood 122 mg/dL (75-99)
[2021-10-02] MEDS: ASPIRIN 81 MG PO SCH (09:15)
[2021-10-02] MEDS: hydroCHLOROthiazide 25 MG TAB PO SCH (09:15)
[2021-10-02] MEDS: ATORVASTATIN 80 MG TAB PO SCH (09:15)
[2021-10-02] MEDS: PANTOPRAZOLE 40 MG TABLET PO SCH (09:15)
[2021-10-02] MEDS: amLODIPine 5 MG TAB PO SCH ×2 (09:15→21:58)
[2021-10-02] MEDS: LOSARTAN 50 MG TAB PO SCH (09:16)
[2021-10-02 09:28] LABS: Basophils # (A) 0.1 k/uL (0-0.2); Basophils % (A) 1 %; Eosinophils # (A) 0.3 k/uL (0-0.7); Eosinophils % (A) 3 %; HCT 51.4 % (39.0-53.0); HGB 17.2 gm/dL (13.0-17.5); Lymphocytes # (A) 1.5 k/uL (1.0-4.8); Lymphocytes % (A) 15 %; MCH 31.7 pg (25.0-35.0); MCHC 33.5 g/dL (31.0-37.0); MCV 94.7 fL (80.0-100.0); Mean Platelet Volume 8.9; Monocytes # (A) 0.9 k/uL (0-1.0); Monocytes % (A) 9 %; Neutrophils # (A) 6.9 k/uL (1.3-7.7); Neutrophils % (A) 70 %; Platelet Count 300 k/uL (150-450); RBC 5.43 m/uL (4.30-5.90); RDW 12.9 % (11.5-15.5); WBC 9.8 k/uL (3.8-10.6)
[2021-10-02] MEDS ORDERED: LACTULOSE 20 GM/30 ML CUP PO ONE (10:03)
[2021-10-02] MEDS: SPIRONOLACTONE 25 MG TAB PO SCH (10:23)
[2021-10-02 10:24] LABS: African American GFR (CKD) 75.7 (60.0-200.0); BUN/Creat Ratio 8.67 Ratio (12.00-20.00); Blood Urea Nitrogen 10.4 mg/dL (9.0-27.0); Calcium 9.8 mg/dL (8.7-10.3); Non-African American GFR(CKD) 65.3 (60.0-200.0); Potassium 4.7 mmol/L (3.5-5.5)
--- NOTE | 2021-10-02 11:00 | ECHOF ---
Referral Reason:lv function MEASUREMENTS -------- HEIGHT: 170.2 cm WEIGHT: 104.3 kg BP: RVIDd: 2.7 cm (< 3.3) IVSd: 1.2 cm (0.6 - 1.1) LVIDd: 4.4 cm (3.9 - 5.3) LVPWd: 1.5 cm (0.6 - 1.1) IVSs: 1.3 cm LVIDs: 4.1 cm LVPWs: 1.7 cm LA Diam: 3.5 cm (2.7 - 3.8) FINDINGS -------- Sinus rhythm. This was a techncally difficult study with suboptimal views, , Lumason utilized for enhancement of im ages. The left ventricular size is normal. There is mild concentric left ventricular hypertrophy. Overa ll left ventricular systolic function is mildly impaired with, an EF between 45 - 50 %. The right ventricle is normal in size. The left atrial size is normal. The right atrial size is normal. The aortic valve was not well visualized. The mitral valve was not well visualized. The tricuspid valve was not well visualized. The pulmonic valve was not well visualized. There is no pericardial effusion. CONCLUSIONS -------- 1. This was a techncally difficult study with suboptimal views, , Lumason utilized for enhancement of images. 2. The left ventricular size is normal. 3. There is mild concentric left ventricular hypertrophy. 4. Overall left ventricular systolic function is mildly impaired with, an EF between 45 - 50 %. 5. The right ventricle is normal in size. 6. The left atrial size is normal. 7. The right atrial size is normal. 8. The aortic valve was not well visualized. 9. The mitral valve was not well visualized. 10. The tricuspid valve was not well visualized. 11. The pulmonic valve was not well visualized. 12. There is no pericardial effusion. MONUMENT LETTERER: Dayna Parham RDCS
[2021-10-02 11:36] LABS: Glucose,Whole Blood 144 mg/dL (75-99)
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
--- NOTE | 2021-10-02 13:35 | P.PN ---
Subjective Progress Note Date: 10/02/21 CHIEF COMPLAINT: Abdominal pain HISTORY OF PRESENT ILLNESS: Patient is up and walking in his room. He is tolerating regular diet. He reports that he still having some left lower quadrant abdominal pain but has not had a bowel movement in several days. Computed tomography scan of abdomen and pelvis with oral contrast shows no bowel obstruction.His new or acute findings. He denies any nausea or vomiting. Afebrile. WBC 9.8 PHYSICAL EXAM: VITAL SIGNS: Reviewed. GENERAL: Well-developed in no acute distress. HEENT: No sclera icterus. Extraocular movements grossly intact. Moist buccal mucosa. Head is atraumatic, normocephalic. ABDOMEN: Soft. Nondistended. Tenderness with palpation of the left lower quadrant NEUROLOGIC: Alert and oriented. Cranial nerves II through XII grossly intact. ASSESSMENT: 1. Abdominal pain in the left lower quadrant and lower mid abdomen. No acute findings noted on computed tomography scan of the abdomen 2. Suicide attempt 3. Constipation PLAN: -No surgical intervention planned -Patient can be discharge from surgical standpoint when medically cleared -Agree with lactulose and MiraLAX for constipation Physician Safety Investigator note has been reviewed by physician. Signing provider agrees with the documented findings, assessment, and plan of care. Objective - Vital Signs Vital signs: Vital Signs Temp 98.5 F 10/02/21 12:01 Pulse 92 10/02/21 12:01 Resp 16 10/02/21 12:01 BP 128/87 10/02/21 12:01 Pulse Ox 97 10/02/21 12:01 Intake & Output 10/01/21 10/02/21 10/02/21 18:59 06:59 18:59 Other: Voiding Method Toilet Toilet Toilet # Voids 1 1 # Bowel Movements 1 - Labs CBC & Chem 7: 10/02/21 06:31 10/02/21 06:31 Labs: Abnormal Lab Results - Last 24 Hours (Table) 10/01/21 10/01/21 10/02/21 Range/Units 17:17 19:55 06:31 BUN/Creatinine Ratio 8.67 L (12.00-20.00) Ratio Glucose 117 H (70-110) mg/dL POC Glucose (mg/dL) 101 H 101 H (75-99) mg/dL 02/09/22 02/09/22 Range/Units 06:57 11:35 BUN/Creatinine Ratio (12.00-20.00) Ratio Glucose (70-110) mg/dL POC Glucose (mg/dL) 122 H 144 H (75-99) mg/dL Microbiology - Last 24 Hours (Table) 09/29/21 21:20 Blood Culture - Preliminary Blood No Growth after 48 hours 09/29/21 21:00 Blood Culture - Preliminary Blood No Growth after 48 hours
[2021-10-02] MEDS ORDERED: PEG 3350-NA SULF,BICARB,CL/KCL 4,000 ML BOTTLE PO ONE (15:13)
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
[2021-10-02] MEDS: SODIUM CHLORIDE 0.9% 1,000 ML IV SCH (17:00)
[2021-10-02 17:48] LABS: Glucose,Whole Blood 141 mg/dL (75-99)
[2021-10-02 19:57] LABS: Glucose,Whole Blood 206 mg/dL (75-99)
[2021-10-02] MEDS: MIRTAZAPINE 15 MG TAB PO SCH (21:58)
[2021-10-03 06:59] LABS: Glucose,Whole Blood 135 mg/dL (75-99)
[2021-10-03] MEDS: PANTOPRAZOLE 40 MG TABLET PO SCH (07:56)
[2021-10-03] MEDS: HEPARIN SODIUM,PORCINE/PF 5,000 UNIT/0.5 ML SYRINGE SQ SCH ×2 (08:12→16:41)
[2021-10-03] MEDS: LOSARTAN 50 MG TAB PO SCH (08:20)
[2021-10-03] MEDS: amLODIPine 5 MG TAB PO SCH ×2 (08:21→21:11)
[2021-10-03] MEDS: ASPIRIN 81 MG PO SCH (08:21)
[2021-10-03] MEDS: polyethylene glycoL 3350 17 GM POWD.PACK PO SCH (08:21)
[2021-10-03] MEDS: ATORVASTATIN 80 MG TAB PO SCH (08:21)
[2021-10-03] MEDS: SPIRONOLACTONE 25 MG TAB PO SCH (08:21)
[2021-10-03] MEDS: hydroCHLOROthiazide 25 MG TAB PO SCH (08:21)
[2021-10-03] MEDS ORDERED: bisacodyL 10 MG SUPP RECTAL STA (09:58)
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
[2021-10-03 11:08] LABS: Glucose,Whole Blood 140 mg/dL (75-99)
--- NOTE | 2021-10-03 13:56 | P.PN ---
Subjective Progress Note Date: 10/03/21 CHIEF COMPLAINT: Abdominal pain HISTORY OF PRESENT ILLNESS: Patient is up and walking in his room. He is tolerating regular diet. He reports that he is having the same left lower quadrant abdominal pain. He also reports no bowel movement after lactulose, MiraLAX or GoLYTELY. He is having flatus. Abdomen is soft. Denies any nausea or vomiting. Afebrile Patient seen and examined with Dr. brower PHYSICAL EXAM: VITAL SIGNS: Reviewed. GENERAL: Well-developed in no acute distress. HEENT: No sclera icterus. Extraocular movements grossly intact. Moist buccal mucosa. Head is atraumatic, normocephalic. ABDOMEN: Soft. Nondistended. Tenderness with palpation of the left lower quadrant NEUROLOGIC: Alert and oriented. Cranial nerves II through XII grossly intact. ASSESSMENT: 1. Abdominal pain in the left lower quadrant and lower mid abdomen. No acute findings noted on computed tomography scan of the abdomen 2. Suicide attempt 3. Constipation PLAN: -No surgical intervention planned -Recommend that patient continues another 2 L of the GoLYTELY prep to help with constipation Physician Appliquer note has been reviewed by physician. Signing provider agrees with the documented findings, assessment, and plan of care. Objective - Vital Signs Vital signs: Vital Signs Temp 98.6 F 10/03/21 07:59 Pulse 81 10/03/21 11:15 Resp 16 10/03/21 11:15 BP 138/85 10/03/21 07:59 Pulse Ox 98 10/03/21 07:59 Intake & Output 10/02/21 10/03/21 10/03/21 18:59 06:59 18:59 Intake Total 750 Balance 750 Intake: Intake, IV Titration 750 Amount Sodium Chloride 0.9% 1, 750 000 ml @ 75 mls/hr IV . [id number] [facility] Rx#:[id number] Other: Voiding Method Toilet Toilet Toilet # Voids 2 1 - Labs CBC & Chem 7: 10/02/21 06:31 10/02/21 06:31 Labs: Abnormal Lab Results - Last 24 Hours (Table) 10/02/21 10/02/21 10/03/21 Range/Units 17:47 19:55 06:57 POC Glucose (mg/dL) 141 H 206 H 135 H (75-99) mg/dL 10/03/21 Range/Units 11:06 POC Glucose (mg/dL) 140 H (75-99) mg/dL Microbiology - Last 24 Hours (Table) 09/29/21 21:20 Blood Culture - Preliminary Blood No Growth after 72 hours 09/29/21 21:00 Blood Culture - Preliminary Blood No Growth after 72 hours
[2021-10-03 16:58] LABS: Glucose,Whole Blood 122 mg/dL (75-99)
[2021-10-03] MEDS: INSULIN ASPART (NovoLOG) 100 UNIT/ML VIAL SQ SCH ×2 (17:22→21:12)
[2021-10-03 20:09] LABS: Glucose,Whole Blood 142 mg/dL (75-99)
[2021-10-03] MEDS: MIRTAZAPINE 15 MG TAB PO SCH (21:11)
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
[2021-10-04] MEDS: HEPARIN SODIUM,PORCINE/PF 5,000 UNIT/0.5 ML SYRINGE SQ SCH ×4 (00:03→23:34)
[2021-10-04 07:02] LABS: Glucose,Whole Blood 128 mg/dL (75-99)
[2021-10-04] MEDS: PANTOPRAZOLE 40 MG TABLET PO SCH (07:30)
[2021-10-04] MEDS: INSULIN ASPART (NovoLOG) 100 UNIT/ML VIAL SQ SCH ×5 (07:50→21:44)
[2021-10-04] MEDS: polyethylene glycoL 3350 17 GM POWD.PACK PO SCH (08:42)
[2021-10-04] MEDS: LOSARTAN 50 MG TAB PO SCH (08:43)
[2021-10-04] MEDS: ATORVASTATIN 80 MG TAB PO SCH (08:43)
[2021-10-04] MEDS: ASPIRIN 81 MG PO SCH (08:44)
[2021-10-04] MEDS: amLODIPine 5 MG TAB PO SCH ×2 (08:44→22:02)
[2021-10-04] MEDS: hydroCHLOROthiazide 25 MG TAB PO SCH (08:44)
[2021-10-04] MEDS: SPIRONOLACTONE 25 MG TAB PO SCH (08:44)
[2021-10-04 10:09] LABS: African American GFR (CKD) 62.8 (60.0-200.0); BUN/Creat Ratio 10.64 Ratio (12.00-20.00); Blood Urea Nitrogen 14.9 mg/dL (9.0-27.0); Calcium 9.5 mg/dL (8.7-10.3); Non-African American GFR(CKD) 54.2 (60.0-200.0); Potassium 3.9 mmol/L (3.5-5.5)
--- NOTE | 2021-10-04 10:49 | P.PN ---
Subjective Progress Note Date: 10/04/21 CHIEF COMPLAINT: Abdominal pain HISTORY OF PRESENT ILLNESS: Patient is up and walking in his room. He is tolerating regular diet. He did report having a small bowel movement. He still has not finished the GoLYTELY prep. Afebrile. Patient to be discharged to the psychiatric unit today Patient seen and examined with Dr. brower PHYSICAL EXAM: VITAL SIGNS: Reviewed. GENERAL: Well-developed in no acute distress. HEENT: No sclera icterus. Extraocular movements grossly intact. Moist buccal mucosa. Head is atraumatic, normocephalic. ABDOMEN: Soft. Nondistended. NEUROLOGIC: Alert and oriented. Cranial nerves II through XII grossly intact. ASSESSMENT: 1. Abdominal pain in the left lower quadrant and lower mid abdomen. No acute findings noted on computed tomography scan of the abdomen 2. Suicide attempt 3. Constipation PLAN: -Patient can be discharge from surgical standpoint -No surgical intervention planned -Continue MiraLAX -Recommend to finish the GoLYTELY prep for constipation Physician Repairer Welding Equipment note has been reviewed by physician. Signing provider agrees with the documented findings, assessment, and plan of care. Objective - Vital Signs Vital signs: Vital Signs Temp 98.2 F 10/04/21 07:59 Pulse 83 10/04/21 09:51 Resp 14 10/04/21 07:59 BP 129/88 10/04/21 07:59 Pulse Ox 96 10/04/21 07:59 Intake & Output 10/03/21 10/04/21 10/04/21 18:59 06:59 18:59 Intake Total 540 Balance 540 Intake: Oral 540 Other: Voiding Method Toilet Toilet Toilet # Voids 2 3 # Bowel Movements 1 - Labs CBC & Chem 7: 10/02/21 06:31 10/04/21 05:30 Labs: Abnormal Lab Results - Last 24 Hours (Table) 10/03/21 10/03/21 10/03/21 Range/Units 11:06 16:57 20:08 Est GFR (CKD-EPI)NonAf (60.0-200.0) BUN/Creatinine Ratio (12.00-20.00) Ratio Glucose (70-110) mg/dL POC Glucose (mg/dL) 140 H 122 H 142 H (75-99) mg/dL 02/11/22 02/11/22 Range/Units 05:30 07:00 Est GFR (CKD-EPI)NonAf 54.2 L (60.0-200.0) BUN/Creatinine Ratio 10.64 L (12.00-20.00) Ratio Glucose 127 H (70-110) mg/dL POC Glucose (mg/dL) 128 H (75-99) mg/dL Microbiology - Last 24 Hours (Table) 09/29/21 21:20 Blood Culture - Preliminary Blood No Growth after 96 hours 09/29/21 21:00 Blood Culture - Preliminary Blood No Growth after 96 hours
[2021-10-04 10:55] LABS: Glucose,Whole Blood 151 mg/dL (75-99)
[2021-10-04 11:36] VITALS: BMI 36.0
[2021-10-04 16:55] LABS: Glucose,Whole Blood 130 mg/dL (75-99)
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
[2021-10-04 20:29] LABS: Glucose,Whole Blood 118 mg/dL (75-99)
[2021-10-04] MEDS: MIRTAZAPINE 15 MG TAB PO SCH (22:02)
[2021-10-05 07:06] LABS: Glucose,Whole Blood 110 mg/dL (75-99)
[2021-10-05] MEDS: ATORVASTATIN 80 MG TAB PO SCH (09:00)
[2021-10-05] MEDS: hydroCHLOROthiazide 25 MG TAB PO SCH (09:00)
[2021-10-05] MEDS: amLODIPine 5 MG TAB PO SCH ×2 (09:00→21:43)
[2021-10-05] MEDS: ASPIRIN 81 MG PO SCH (09:00)
[2021-10-05] MEDS: PANTOPRAZOLE 40 MG TABLET PO SCH (09:01)
[2021-10-05] MEDS: SPIRONOLACTONE 25 MG TAB PO SCH (09:01)
[2021-10-05] MEDS: LOSARTAN 50 MG TAB PO SCH (09:01)
[2021-10-05] MEDS: polyethylene glycoL 3350 17 GM POWD.PACK PO SCH (09:04)
[2021-10-05] MEDS: HEPARIN SODIUM,PORCINE/PF 5,000 UNIT/0.5 ML SYRINGE SQ SCH ×3 (09:04→23:11)
[2021-10-05] MEDS: INSULIN ASPART (NovoLOG) 100 UNIT/ML VIAL SQ SCH ×4 (09:04→21:43)
--- NOTE | 2021-10-05 10:35 | P.PN ---
Progress Note - Text Progress Note Date: 10/05/21 Patient is up walking in his room. Patient states he has not had a bowel movement. [place] nursing staff states he has had a bowel movement. On exam vital signs are stable abdomen soft. Resolved constipation. Patient is stable from a surgical standpoint.
--- NOTE | 2021-10-05 11:00 | XR ---
EXAMINATION TYPE: XR KUB DATE OF EXAM: 10/05/2021 10:38 AM INDICATION: Patient age:Male; 61 years old; Reason for study: abd distension ; COMPARISON: CT abdomen pelvis 222 TECHNIQUE: One radiographic view of the abdomen was obtained. FINDINGS: The bowel gas pattern is nonspecific without dilated loops of small or large bowel. There i s no evidence for organomegaly or pneumoperitoneum. The osseous structures are intact. Pelvic calci fications as seen on prior CT to be within vessels. Fecal material and gas are demonstrated throughou t the colon and rectum. IMPRESSION: Nonspecific bowel gas pattern without radiographic evidence for acute process.
[2021-10-05 11:32] LABS: Glucose,Whole Blood 111 mg/dL (75-99)
[2021-10-05 17:13] LABS: Glucose,Whole Blood 92 mg/dL (75-99)
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
[2021-10-05 21:40] LABS: Glucose,Whole Blood 171 mg/dL (75-99)
[2021-10-05] MEDS: MIRTAZAPINE 15 MG TAB PO SCH (21:43)
[2021-10-06 07:24] LABS: Glucose,Whole Blood 146 mg/dL (75-99)
[2021-10-06] MEDS: ATORVASTATIN 80 MG TAB PO SCH (09:18)
[2021-10-06] MEDS: ASPIRIN 81 MG PO SCH (09:18)
[2021-10-06] MEDS: LOSARTAN 50 MG TAB PO SCH (09:19)
[2021-10-06] MEDS: PANTOPRAZOLE 40 MG TABLET PO SCH (09:19)
[2021-10-06] MEDS: amLODIPine 5 MG TAB PO SCH ×2 (09:19→23:10)
[2021-10-06] MEDS: hydroCHLOROthiazide 25 MG TAB PO SCH (09:19)
[2021-10-06] MEDS: SPIRONOLACTONE 25 MG TAB PO SCH (09:19)
[2021-10-06] MEDS: polyethylene glycoL 3350 17 GM POWD.PACK PO SCH (09:48)
[2021-10-06] MEDS: INSULIN ASPART (NovoLOG) 100 UNIT/ML VIAL SQ SCH ×4 (09:48→23:10)
[2021-10-06] MEDS: HEPARIN SODIUM,PORCINE/PF 5,000 UNIT/0.5 ML SYRINGE SQ SCH ×3 (09:48→23:12)
--- NOTE | 2021-10-06 12:14 | P.PN ---
Progress Note - Text Progress Note Date: 10/06/21 Patient remains stable. He still denying bowel movements. On exam her lesser stable. Abdomen soft. The patient apparently will be transferred to the psych floor soon. He appears currently stable.
[2021-10-06 12:49] LABS: Glucose,Whole Blood 130 mg/dL (75-99)
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
[2021-10-06 17:43] LABS: Glucose,Whole Blood 155 mg/dL (75-99)
[2021-10-06 21:30] LABS: Glucose,Whole Blood 152 mg/dL (75-99)
[2021-10-06 22:35] VITALS: TEMP 98.1
[2021-10-06] MEDS: MIRTAZAPINE 15 MG TAB PO SCH (23:10)
[2021-10-07 07:12] LABS: Glucose,Whole Blood 135 mg/dL (75-99)
[2021-10-07] MEDS: PANTOPRAZOLE 40 MG TABLET PO SCH (08:48)
[2021-10-07] MEDS: LOSARTAN 50 MG TAB PO SCH (08:48)
[2021-10-07] MEDS: SPIRONOLACTONE 25 MG TAB PO SCH (08:48)
[2021-10-07] MEDS: amLODIPine 5 MG TAB PO SCH ×2 (08:48→20:28)
[2021-10-07] MEDS: hydroCHLOROthiazide 25 MG TAB PO SCH (08:48)
[2021-10-07] MEDS: ATORVASTATIN 80 MG TAB PO SCH (08:48)
[2021-10-07] MEDS: ASPIRIN 81 MG PO SCH (08:48)
[2021-10-07] MEDS: polyethylene glycoL 3350 17 GM POWD.PACK PO SCH (09:36)
[2021-10-07] MEDS: HEPARIN SODIUM,PORCINE/PF 5,000 UNIT/0.5 ML SYRINGE SQ SCH ×2 (09:36→17:48)
[2021-10-07] MEDS: INSULIN ASPART (NovoLOG) 100 UNIT/ML VIAL SQ SCH ×4 (09:36→20:26)
[2021-10-07 11:30] LABS: Glucose,Whole Blood 122 mg/dL (75-99)
[2021-10-07] MEDS: LACTULOSE 20 GM/30 ML CUP PO SCH ×4 (11:49→13:38)
--- NOTE | 2021-10-07 12:45 | XR ---
EXAMINATION TYPE: XR abdomen 2V DATE OF EXAM: 10/07/2021 COMPARISON: NONE HISTORY: Constipation TECHNIQUE: One view abdominal series FINDINGS: The osseous structures are intact. The bowel gas pattern is nonspecific. Calcifications in the pelvi s likely vascular. Arthropathy of the hips. Hypertrophic changes of the spine. IMPRESSION: 1. Nonspecific abdomen.
--- NOTE | 2021-10-07 12:56 | P.PN ---
Subjective Progress Note Date: 10/07/21 CHIEF COMPLAINT: Abdominal pain HISTORY OF PRESENT ILLNESS: Patient lying in bed comfortably. Still reports no bowel movements. Denies any nausea vomiting. Currently on a regular diet. Afebrile. Patient seen and examined with Dr. brower PHYSICAL EXAM: VITAL SIGNS: Reviewed. GENERAL: Well-developed in no acute distress. HEENT: No sclera icterus. Extraocular movements grossly intact. Moist buccal mucosa. Head is atraumatic, normocephalic. ABDOMEN: Soft. Nondistended. NEUROLOGIC: Alert and oriented. Cranial nerves II through XII grossly intact. ASSESSMENT: 1. Abdominal pain in the left lower quadrant and lower mid abdomen. Improved. No acute findings noted on computed tomography scan of the abdomen 2. Suicide attempt 3. Constipation PLAN: -Abdominal x-ray ordered for further evaluation of patient's constipation -Lactulose 30 mL one every hour 5 doses ordered for constipation -No surgical intervention planned -Continue [employer] Physician Energy Director note has been reviewed by physician. Signing provider agrees with the documented findings, assessment, and plan of care. Objective - Vital Signs Vital signs: Vital Signs Temp 98.1 F 10/07/21 04:00 Pulse 102 H 10/07/21 08:50 Resp 20 10/07/21 04:00 BP 102/66 10/07/21 08:50 Pulse Ox 98 10/07/21 04:00 Intake & Output 10/06/21 10/07/21 10/07/21 18:59 06:59 18:59 Intake Total 120 200 Balance 120 200 Weight 92.986 kg Intake: Oral 120 200 Other: Voiding Method Toilet # Voids 3 2 - Labs CBC & Chem 7: 10/02/21 06:31 10/04/21 05:30 Labs: Abnormal Lab Results - Last 24 Hours (Table) 10/06/21 10/06/21 10/06/21 Range/Units 12:36 17:22 21:12 POC Glucose (mg/dL) 130 H 155 H 152 H (75-99) mg/dL 10/07/21 Range/Units 07:07 POC Glucose (mg/dL) 135 H (75-99) mg/dL
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
[2021-10-07 17:13] LABS: Glucose,Whole Blood 134 mg/dL (75-99)
[2021-10-07 20:03] VITALS: BP 123/82; PULSE 102; RESP 20
[2021-10-07] MEDS: MIRTAZAPINE 15 MG TAB PO SCH (20:28)
[2021-10-07 20:42] LABS: Glucose,Whole Blood 130 mg/dL (75-99)
[2021-10-07] MEDS ORDERED: MIRTAZAPINE 15 MG TAB PO SCH (21:00)
== END 2021-10-07 21:00 ==
LOC: EC 14:42 → 5NMEDONC 20:22
PROVIDERS: ADMIT Internal Medicine; ATTEND Internal Medicine
DX: F32.3 Major depressive disorder, single episode, severe with psychotic features (principal); T14.91XA Suicide attempt, initial encounter; I13.0 Hypertensive heart and chronic kidney disease with heart failure and stage 1 through stage 4 chronic kidney disease, or unspecified chronic kidney disease; N18.9 Chronic kidney disease, unspecified; I50.9 Heart failure, unspecified; E11.22 Type 2 diabetes mellitus with diabetic chronic kidney disease; N11.9 Chronic tubulo-interstitial nephritis, unspecified; N28.89 Other specified disorders of kidney and ureter; T46.5X6A Underdosing of other antihypertensive drugs, initial encounter; Z91.128 Patient's intentional underdosing of medication regimen for other reason; R79.89 Other specified abnormal findings of blood chemistry; R10.32 Left lower quadrant pain; R10.33 Periumbilical pain; D72.829 Elevated white blood cell count, unspecified; R94.31 Abnormal electrocardiogram [ECG] [EKG]; I08.1 Rheumatic disorders of both mitral and tricuspid valves; I49.1 Atrial premature depolarization; G47.00 Insomnia, unspecified; E78.5 Hyperlipidemia, unspecified; K59.00 Constipation, unspecified; R00.0 Tachycardia, unspecified; R10.31 Right lower quadrant pain; E66.9 Obesity, unspecified; Z68.31 Body mass index [BMI] 31.0-31.9, adult; Z20.822 Contact with and (suspected) exposure to COVID-19; Z79.84 Long term (current) use of oral hypoglycemic drugs; Z79.4 Long term (current) use of insulin; Z79.82 Long term (current) use of aspirin; Z79.899 Other long term (current) drug therapy; Z91.030 Bee allergy status; Z56.0 Unemployment, unspecified; Z87.891 Personal history of nicotine dependence; Z98.890 Other specified postprocedural states; Z84.1 Family history of disorders of kidney and ureter; Z81.8 Family history of other mental and behavioral disorders
CPT/HCPCS: 96376 ×2; 96361 ×4; 96372 ×7; 96375 ×3; 82075; 96374; 99285; 36415; 93005; 80053; 80048 ×4; 82375; 83605; 83735; 85025 ×4; 81001; 87040; 80306; 84145; 87635; 71046; 74018; 74019; 74176; 74177; G0378 ×9; C8929; G0480; J2405; J0696; C9113 ×2; Q9950; Q9967; J1644 ×7; 80320; 93306

== ENCOUNTER 2021-10-07 19:06 | Inpatient (IN) | payer MEDICAID ==
[2021-10-07] MEDS ORDERED: HALOPERIDOL LACTATE 5 MG/ML 1 ML VIAL IM PRN (20:11)
[2021-10-07] MEDS ORDERED: LORazepam 1 MG TAB PO PRN (20:11)
[2021-10-07] MEDS ORDERED: MAG HYDROX/AL HYDROX/SIMETH 30 ML CUP PO PRN (20:11)
[2021-10-07] MEDS ORDERED: ACETAMINOPHEN TAB 325 MG TAB PO PRN (20:11)
[2021-10-07] MEDS ORDERED: MAGNESIUM HYDROXIDE 2,400 MG/10 ML CUP PO PRN (20:11)
[2021-10-07] MEDS ORDERED: LORazepam 2 MG/ML INJ IM PRN (20:12)
[2021-10-07] MEDS ORDERED: haloperidoL 5 MG TAB PO PRN (20:12)
[2021-10-07] MEDS ORDERED: amLODIPine 5 MG TAB PO SCH (21:00)
[2021-10-08] MEDS: ASPIRIN 81 MG PO SCH (07:59)
[2021-10-08] MEDS: CHOLECALCIFEROL 25 MCG (1000 IU) TABLET PO SCH (07:59)
[2021-10-08] MEDS: SPIRONOLACTONE 25 MG TAB PO SCH (07:59)
[2021-10-08] MEDS: LOSARTAN 50 MG TAB PO SCH (07:59)
[2021-10-08] MEDS: amLODIPine 5 MG TAB PO SCH ×2 (07:59→21:26)
[2021-10-08] MEDS: INSULIN ASPART (NovoLOG) 100 UNIT/ML VIAL SQ SCH ×4 (08:16→22:58)
[2021-10-08 08:35] LABS: Glucose,Whole Blood 163 mg/dL (75-99)
[2021-10-08] MEDS: ATORVASTATIN 80 MG TAB PO SCH (08:47)
[2021-10-08] MEDS: hydroCHLOROthiazide 25 MG TAB PO SCH (08:47)
[2021-10-08 12:44] LABS: Glucose,Whole Blood 107 mg/dL (75-99)
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
[2021-10-08 17:42] LABS: Glucose,Whole Blood 114 mg/dL (75-99)
[2021-10-08 20:12] LABS: Glucose,Whole Blood 125 mg/dL (75-99)
[2021-10-08] MEDS ORDERED: PALIPERIDONE 3 MG TAB.ER.24 PO SCH (21:00)
[2021-10-08] MEDS: MIRTAZAPINE 15 MG TAB PO SCH (21:26)
[2021-10-09 07:10] LABS: Basophils # (A) 0.1 k/uL (0-0.2); Basophils % (A) 1 %; Eosinophils # (A) 0.2 k/uL (0-0.7); Eosinophils % (A) 1 %; HCT 50.9 % (39.0-53.0); HGB 18.4 gm/dL (13.0-17.5); Lymphocytes # (A) 2.4 k/uL (1.0-4.8); Lymphocytes % (A) 19 %; MCH 33.5 pg (25.0-35.0); MCHC 36.1 g/dL (31.0-37.0); MCV 92.7 fL (80.0-100.0); Mean Platelet Volume 8.2; Monocytes # (A) 1.4 k/uL (0-1.0); Monocytes % (A) 11 %; Neutrophils # (A) 8.6 k/uL (1.3-7.7); Neutrophils % (A) 66 %; Platelet Count 387 k/uL (150-450); RBC 5.49 m/uL (4.30-5.90); RDW 12.6 % (11.5-15.5); WBC 12.9 k/uL (3.8-10.6)
[2021-10-09 07:20] LABS: Albumin 4.5 g/dL (3.5-5.0); Calcium 9.9 mg/dL (8.4-10.2); Potassium 4.8 mmol/L (3.5-5.1); Total Bilirubin 2.5 mg/dL (0.2-1.3); Total Protein 8.3 g/dL (6.3-8.2)
[2021-10-09 08:05] LABS: Glucose,Whole Blood 135 mg/dL (75-99)
[2021-10-09] MEDS: INSULIN ASPART (NovoLOG) 100 UNIT/ML VIAL SQ SCH ×4 (08:20→20:53)
[2021-10-09] MEDS: ASPIRIN 81 MG PO SCH (08:21)
[2021-10-09] MEDS: amLODIPine 5 MG TAB PO SCH ×2 (08:21→20:33)
[2021-10-09] MEDS: CHOLECALCIFEROL 25 MCG (1000 IU) TABLET PO SCH (08:21)
[2021-10-09] MEDS: ATORVASTATIN 80 MG TAB PO SCH (08:21)
[2021-10-09] MEDS: hydroCHLOROthiazide 25 MG TAB PO SCH (08:21)
[2021-10-09] MEDS: LOSARTAN 50 MG TAB PO SCH (08:21)
[2021-10-09] MEDS: SPIRONOLACTONE 25 MG TAB PO SCH (08:21)
--- NOTE | 2021-10-09 09:45 | P.PN ---
Progress Note - Text Progress Note Date: 10/09/21 Interval History: Patient was seen resting in bed and was directable and agreeable to speak with race and sports book writer in the office. The patient was noted by staff to eat his meals and take his medications. Also present at the patient's bedside was a cup he has been drinking water out of. Despite this, the patient continues to maintain he is unable to eat or drink because all the food turns to bile that causes damage to his brain. He reports this is in the form of headaches. He denies any suicidal or homicidal ideation, intention, and/or plan. He denies any auditory or visual hallucinations. He remains fearful about him "wasting away" despite eating. He has been adherent with his medications and reports no side effects at this time. Mental Status Exam: General Appearance: Patient appears to be stated age is alert, directable, and cooperative. Behavior: Patient is calmly seated without any agitated behavior. Speech: Patient's speech is fluent and nonpressured. Mood/Affect: Mood is "not good at all." Affect is afraid and fearful. Suicidality/Homicidality: Patient denies having any suicidal or homicidal ideation intent or plan. Perceptions: Patient denies any visual hallucinations and denies any auditory hallucinations Though content/process: Patient is endorsing a cotard delusion of inner organs and bile. Memory and concentration: AOX3, grossly intact for the purposes of this session Judgment and insight: Poor Vital Signs Temp 97.9 F 10/08/21 05:33 Pulse 113 H 10/08/21 21:56 Resp 18 10/08/21 05:33 BP 110/71 10/08/21 21:56 Pulse Ox 97 10/08/21 05:33 Laboratory Results - Last 24 Hours 10/08/21 10/08/21 10/08/21 12:42 17:41 20:11 WBC RBC Hgb Hct MCV MCH MCHC RDW Plt Count MPV Neutrophils % Lymphocytes % Monocytes % Eosinophils % Basophils % Neutrophils # Lymphocytes # Monocytes # Eosinophils # Basophils # Sodium Potassium Chloride Carbon Dioxide Anion Gap BUN Creatinine Est GFR (CKD-EPI)AfAm Est GFR (CKD-EPI)NonAf Glucose POC Glucose (mg/dL) 107 H 114 H 125 H POC Glu [employer] Alma Carballo Alynne Dillon, [address] Glu mg/dL Hemoglobin A1c Calcium Total Bilirubin AST ALT Alkaline Phosphatase Total Protein Albumin 10/09/21 10/09/21 10/09/21 06:23 06:23 06:23 WBC 12.9 H RBC 5.49 Hgb 18.4 H Hct 50.9 MCV 92.7 MCH 33.5 MCHC 36.1 RDW 12.6 Plt Count 387 MPV 8.2 Neutrophils % 66 Lymphocytes % 19 Monocytes % 11 Eosinophils % 1 Basophils % 1 Neutrophils # 8.6 H Lymphocytes # 2.4 Monocytes # 1.4 H Eosinophils # 0.2 Basophils # 0.1 Sodium 130 L Potassium 4.8 Chloride 96 L Carbon Dioxide 19 L Anion Gap 15 BUN 48 H Creatinine 3.00 H Est GFR (CKD-EPI)AfAm 25 Est GFR (CKD-EPI)NonAf 22 Glucose 138 H POC Glucose (mg/dL) POC Glu [employer] Probate ID Estimated [address] Glu mg/dL 135 Hemoglobin A1c 6.3 H Calcium 9.9 Total Bilirubin 2.5 H AST 46 ALT 44 Alkaline Phosphatase 85 Total Protein 8.3 H Albumin 4.5 10/09/21 08:02 WBC RBC Hgb Hct MCV MCH MCHC RDW Plt Count MPV Neutrophils % Lymphocytes % Monocytes % Eosinophils % Basophils % Neutrophils # Lymphocytes # Monocytes # Eosinophils # Basophils # Sodium Potassium Chloride Carbon Dioxide Anion Gap BUN Creatinine Est GFR (CKD-EPI)AfAm Est GFR (CKD-EPI)NonAf Glucose POC Glucose (mg/dL) 135 H POC Glu [employer] ID Rachana Agarwal [address] Glu mg/dL Hemoglobin A1c Calcium Total Bilirubin AST ALT Alkaline Phosphatase Total Protein Albumin Assessment Schizoaffective Disorder, Depressive type Plan: -Patient continues to meet criteria for inpatient psychiatric admission for symptom stabilization and safety. Patient has signed adult voluntary form and medication consent and was placed in patient's chart. -Medications: Increase invega to 6 mg at bedtime for schizoaffective disorder Continue Remeron 7.5 mg at bedtime for depression/appetite stimulation -When necessary Ativan and Haldol for agitation/aggression. -SW on board for discharge planning. Encouraged the patient to participate in milieu.
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
[2021-10-09] MEDS ORDERED: SENNOSIDES 8.6 MG TAB PO PRN (10:43)
[2021-10-09 12:51] LABS: Glucose,Whole Blood 173 mg/dL (75-99)
[2021-10-09 17:39] LABS: Glucose,Whole Blood 122 mg/dL (75-99)
[2021-10-09] MEDS: MIRTAZAPINE 15 MG TAB PO SCH (20:33)
[2021-10-09 20:38] LABS: Glucose,Whole Blood 188 mg/dL (75-99)
[2021-10-09] MEDS ORDERED: PALIPERIDONE 6 MG TAB.ER.24 PO SCH (21:00)
[2021-10-10] MEDS: ATORVASTATIN 80 MG TAB PO SCH (07:46)
[2021-10-10] MEDS: ASPIRIN 81 MG PO SCH (07:46)
[2021-10-10] MEDS: CHOLECALCIFEROL 25 MCG (1000 IU) TABLET PO SCH (07:46)
[2021-10-10] MEDS: amLODIPine 5 MG TAB PO SCH ×2 (07:46→20:07)
[2021-10-10 07:57] LABS: Glucose,Whole Blood 178 mg/dL (75-99)
[2021-10-10] MEDS: INSULIN ASPART (NovoLOG) 100 UNIT/ML VIAL SQ SCH ×4 (08:03→20:08)
--- NOTE | 2021-10-10 12:02 | P.PN ---
Progress Note - Text Progress Note Date: 10/10/21 Interval History: Patient was seen resting in bed and was directable and agreeable to speak with screenplay writer in his room. The patient did not get up for his breakfast this morning. He reports that he has been feeling a "burning sensation in my belly and that's why I know that I am wasting away with the bile." He continues to be fixated that he is not doing well and is feeling very ill and is afraid to eat anymore. He is however agreeable to take medications at this time and is agreeable to starting a medication to treat any reflux. The patient is not reporting any suicidal or homicidal ideation, intention, and/or plan. He is not reporting any auditory or visual hallucinations. He reports that he had difficulty with sleep last night. Mental Status Exam: General Appearance: Patient appears to be stated age is alert, directable, and cooperative. Behavior: Patient is calmly seated without any agitated behavior. Speech: Patient's speech is fluent and nonpressured. Mood/Affect: Mood is "not good at all." Affect is malaised and afraid Suicidality/Homicidality: Patient denies having any suicidal or homicidal ideation intent or plan. Perceptions: Patient denies any visual hallucinations and denies any auditory hallucinations Though content/process: Patient is endorsing a cotard delusion of inner organs and bile. Memory and concentration: AOX3, grossly intact for the purposes of this session Judgment and insight: Poor Vital Signs Temp 97.7 F 10/10/21 06:53 Pulse 136 H 10/10/21 06:53 Resp 14 10/10/21 06:53 BP 96/53 10/10/21 06:53 Pulse Ox 96 10/10/21 06:53 Laboratory Results - Last 24 Hours 10/09/21 10/09/21 10/09/21 12:49 17:38 20:36 POC Glucose (mg/dL) 173 H 122 H 188 H POC Glu Machine [employer] Helper ID Alia Ludwig Racheal Abramovitch, David 10/10/21 07:54 POC Glucose (mg/dL) 178 H POC Glu [employer] Helper ID Cornel Jimenez Assessment Schizoaffective Disorder, Depressive type Plan: -Patient continues to meet criteria for inpatient psychiatric admission for symptom stabilization and safety. Patient has signed adult voluntary form and medication consent and was placed in patient's chart. -Medications: Increase invega to 9 mg at bedtime for schizoaffective disorder Continue Remeron 7.5 mg at bedtime for depression/appetite stimulation We will start Pepcid for reflux. -When necessary Ativan and Haldol for agitation/aggression. -SW on board for discharge planning. Encouraged the patient to participate in milieu.
[2021-10-10 12:45] LABS: Glucose,Whole Blood 145 mg/dL (75-99)
[2021-10-10 17:42] LABS: Glucose,Whole Blood 172 mg/dL (75-99)
[2021-10-10 20:00] LABS: Glucose,Whole Blood 296 mg/dL (75-99)
[2021-10-10] MEDS: MIRTAZAPINE 15 MG TAB PO SCH (20:08)
[2021-10-10] MEDS: PALIPERIDONE 3 MG TAB.ER.24 PO SCH (20:08)
[2021-10-11 04:58] VITALS: RESP 16
[2021-10-11] MEDS: INSULIN ASPART (NovoLOG) 100 UNIT/ML VIAL SQ SCH ×4 (07:56→20:38)
[2021-10-11] MEDS: ASPIRIN 81 MG PO SCH (07:57)
[2021-10-11] MEDS: CHOLECALCIFEROL 25 MCG (1000 IU) TABLET PO SCH (07:57)
[2021-10-11] MEDS: ATORVASTATIN 80 MG TAB PO SCH (07:57)
[2021-10-11] MEDS: amLODIPine 5 MG TAB PO SCH ×2 (07:57→21:50)
[2021-10-11] MEDS: FAMOTIDINE 20 MG TAB PO SCH (07:57)
[2021-10-11 08:04] LABS: Glucose,Whole Blood 152 mg/dL (75-99)
[2021-10-11 12:29] LABS: Glucose,Whole Blood 170 mg/dL (75-99)
--- NOTE | 2021-10-11 12:37 | P.PN ---
Progress Note - Text Progress Note Date: 10/11/21 Interval History: Patient was seen resting in bed and was directable and agreeable to speak with expert medical writer in his room. The patient reports that he is feeling little better and was able to eat a little however states that he is continuing to feel like he is having bilateral enter his brain. He is currently denying any suicidal or homicidal ideation, intention, and/or plan. He is not reporting any auditory or visual hallucinations. He is not reporting any paranoia or delusions. The patient continues to discuss with significant negative symptoms and has not been able to address any of his hygiene and grooming either. Mental Status Exam: General Appearance: Patient appears to be stated age is alert, directable, and cooperative. Behavior: Patient is calmly seated without any agitated behavior. Psychomotor slowing is evident. Speech: Patient's speech is fluent and nonpressured. Monotone and nonspontaneous. Mood/Affect: Mood is "still not good" Affect is blunted. Suicidality/Homicidality: Patient denies having any suicidal or homicidal ideation intent or plan. Perceptions: Patient denies any visual hallucinations and denies any auditory hallucinations Though content/process: Patient is endorsing a cotard delusion of inner organs and bile. Memory and concentration: AOX3, grossly intact for the purposes of this session Judgment and insight: Poor Vital Signs Temp 97.4 F L 10/11/21 04:57 Pulse 113 H 10/11/21 10:05 Resp 16 10/11/21 04:57 BP 131/73 10/11/21 10:05 Pulse Ox 96 10/10/21 06:53 Laboratory Results - Last 24 Hours 10/10/21 10/10/21 10/10/21 12:43 17:40 19:59 POC Glucose (mg/dL) 145 H 172 H 296 H POC Glu Mill Work ID Cornel Jimenez Richard Harbron, Linda 10/11/21 10/11/21 07:52 12:27 POC Glucose (mg/dL) 152 H 170 H POC Glu [employer] Elieser Scott Germain Assessment Schizoaffective Disorder, Depressive type Plan: -Patient continues to meet criteria for inpatient psychiatric admission for symptom stabilization and safety. Patient has signed adult voluntary form and medication consent and was placed in patient's chart. -Medications: Continue invega 9 mg at bedtime for schizoaffective disorder Increase remeron to 15 mg at bedtime for depression/appetite stimulation Continue pepcid for reflux -When necessary Ativan and Haldol for agitation/aggression. -SW on board for discharge planning. Encouraged the patient to participate in milieu.
[2021-10-11 17:42] LABS: Glucose,Whole Blood 126 mg/dL (75-99)
[2021-10-11 20:08] LABS: Glucose,Whole Blood 207 mg/dL (75-99)
[2021-10-11] MEDS: PALIPERIDONE 3 MG TAB.ER.24 PO SCH (20:40)
[2021-10-11] MEDS: MIRTAZAPINE 15 MG TAB PO SCH (20:41)
[2021-10-12 07:45] LABS: Glucose,Whole Blood 143 mg/dL (75-99)
[2021-10-12] MEDS: CHOLECALCIFEROL 25 MCG (1000 IU) TABLET PO SCH (08:49)
[2021-10-12] MEDS: ASPIRIN 81 MG PO SCH (08:49)
[2021-10-12] MEDS: amLODIPine 5 MG TAB PO SCH ×2 (08:49→20:23)
[2021-10-12] MEDS: FAMOTIDINE 20 MG TAB PO SCH (08:49)
[2021-10-12] MEDS: ATORVASTATIN 80 MG TAB PO SCH (08:49)
[2021-10-12] MEDS: INSULIN ASPART (NovoLOG) 100 UNIT/ML VIAL SQ SCH ×4 (08:49→20:23)
[2021-10-12 12:45] LABS: Glucose,Whole Blood 183 mg/dL (75-99)
[2021-10-12 17:34] LABS: Glucose,Whole Blood 177 mg/dL (75-99)
[2021-10-12] MEDS: MIRTAZAPINE 15 MG TAB PO SCH (20:23)
[2021-10-12] MEDS: PALIPERIDONE 3 MG TAB.ER.24 PO SCH (20:23)
[2021-10-12 20:33] LABS: Glucose,Whole Blood 195 mg/dL (75-99)
[2021-10-13 07:53] LABS: Glucose,Whole Blood 174 mg/dL (75-99)
[2021-10-13] MEDS: INSULIN ASPART (NovoLOG) 100 UNIT/ML VIAL SQ SCH ×4 (08:39→20:18)
[2021-10-13] MEDS: FAMOTIDINE 20 MG TAB PO SCH (08:40)
[2021-10-13] MEDS: ASPIRIN 81 MG PO SCH (08:40)
[2021-10-13] MEDS: ATORVASTATIN 80 MG TAB PO SCH (08:40)
[2021-10-13] MEDS: CHOLECALCIFEROL 25 MCG (1000 IU) TABLET PO SCH (08:40)
[2021-10-13] MEDS: amLODIPine 5 MG TAB PO SCH ×2 (08:40→20:19)
[2021-10-13 12:46] LABS: Glucose,Whole Blood 149 mg/dL (75-99)
[2021-10-13 17:36] LABS: Glucose,Whole Blood 175 mg/dL (75-99)
--- NOTE | 2021-10-13 19:01 | P.PN ---
Subjective Progress Note Date: 10/13/21 Principal diagnosis: progress note He continued to be delusional : staff reported his comment regarding penis retraction and paranoid delusions revolved food. Negative symptoms : apathy, anhedone and social withdrawal > he was seen in his room . He was prepared to have medication assessed. Diagnois: schioaffective disorder highly symptomatic Plan Remeron increased to 30 mg to 60 mg Invega 9 mg may be increased to 12 mg monitor for EPS Objective - Vital Signs Vital signs: Vital Signs Temp 98.3 F 10/13/21 06:54 Pulse 110 H 10/13/21 06:54 Resp 16 10/13/21 06:54 BP 128/68 10/13/21 06:54 Pulse Ox 95 10/13/21 06:54 Intake & Output 10/12/21 10/13/21 10/13/21 18:59 06:59 18:59 Weight 77 kg - Labs CBC & Chem 7: 10/09/21 06:23 10/09/21 06:23 Labs: Abnormal Lab Results - Last 24 Hours (Table) 10/12/21 10/13/21 10/13/21 Range/Units 20:19 07:51 12:44 POC Glucose (mg/dL) 195 H 174 H 149 H (75-99) mg/dL 10/13/21 Range/Units 17:35 POC Glucose (mg/dL) 175 H (75-99) mg/dL
[2021-10-13 20:05] LABS: Glucose,Whole Blood 192 mg/dL (75-99)
[2021-10-13] MEDS: PALIPERIDONE 3 MG TAB.ER.24 PO SCH (20:19)
[2021-10-13] MEDS: MIRTAZAPINE 45 MG TABLET PO SCH (20:19)
[2021-10-14 08:02] LABS: Glucose,Whole Blood 162 mg/dL (75-99)
[2021-10-14] MEDS: INSULIN ASPART (NovoLOG) 100 UNIT/ML VIAL SQ SCH ×4 (08:18→20:46)
[2021-10-14] MEDS: amLODIPine 5 MG TAB PO SCH ×2 (08:19→20:48)
[2021-10-14] MEDS: ASPIRIN 81 MG PO SCH (08:19)
[2021-10-14] MEDS: ATORVASTATIN 80 MG TAB PO SCH (08:20)
[2021-10-14] MEDS: CHOLECALCIFEROL 25 MCG (1000 IU) TABLET PO SCH (08:20)
[2021-10-14] MEDS: FAMOTIDINE 20 MG TAB PO SCH (08:20)
[2021-10-14 12:39] LABS: Glucose,Whole Blood 149 mg/dL (75-99)
--- NOTE | 2021-10-14 13:00 | P.PN ---
Progress Note - Text Progress Note Date: 10/14/21 Interval History: Patient was seen resting in bed and was directable and agreeable to speak with check writer salesperson in his room. Present at the patient's bedside are cups of water as well as packets of peanut butter. Despite this, the patient does report that he continues to have an inability to eat or consume anything. Remains fixated that his body is "breaking down." He describes this feeling as feeling weak and all his limbs as well as experiencing stomach pain. He is otherwise not reporting any suicidal or homicidal ideation, intention,/or plan. He denies any auditory or visual hallucinations. The patient has been adherent with his medications and is not reporting any significant side effects at this time. Mental Status Exam: General Appearance: Patient appears to be stated age is alert, directable, and cooperative. Behavior: Patient is calmly seated without any agitated behavior. Psychomotor activity appears normal today. Speech: Patient's speech is fluent and nonpressured. Monotone but more spontaneous. Mood/Affect: Mood is "I'm not feeling good, I'm breaking down." Affect appears to be constricted. Suicidality/Homicidality: Patient denies having any suicidal or homicidal ideation intent or plan. Perceptions: Patient denies any visual hallucinations and denies any auditory hallucinations Though content/process: Patient is endorsing a cotard delusion of inner organs and bile. Memory and concentration: AOX3, grossly intact for the purposes of this session Judgment and insight: Poor Vital Signs Temp 97.7 F 10/14/21 06:29 Pulse 126 H 10/14/21 08:21 Resp 16 10/13/21 06:54 BP 103/73 10/14/21 08:21 Pulse Ox 98 10/14/21 06:29 Intake & Output 10/13/21 10/14/21 10/14/21 18:59 06:59 18:59 Weight 77 kg Laboratory Results - Last 24 Hours 10/13/21 10/13/21 10/14/21 17:35 20:03 07:59 POC Glucose (mg/dL) 175 H 192 H 162 H POC Glu Barrel Turner ID Mio Virgen Linda Patalon, Stephanie 10/14/21 12:37 POC Glucose (mg/dL) 149 H POC Glu Barrel Turner ID Oziel, Alia Assessment Schizoaffective Disorder, Depressive type Plan: -Patient continues to meet criteria for inpatient psychiatric admission for symptom stabilization and safety. Patient has signed adult voluntary form and medication consent and was placed in patient's chart. -Medications: Continue invega 9 mg at bedtime for schizoaffective disorder Continue Remeron 45 mg at bedtime for depression/appetite stimulation Continue pepcid for reflux -When necessary Ativan and Haldol for agitation/aggression. -SW on board for discharge planning. Encouraged the patient to participate in milieu.
[2021-10-14 17:49] LABS: Glucose,Whole Blood 145 mg/dL (75-99)
[2021-10-14 19:58] LABS: Glucose,Whole Blood 265 mg/dL (75-99)
[2021-10-14] MEDS: PALIPERIDONE 3 MG TAB.ER.24 PO SCH (20:48)
[2021-10-15] MEDS: MIRTAZAPINE 45 MG TABLET PO SCH ×2 (03:06→21:17)
[2021-10-15 07:42] LABS: Glucose,Whole Blood 144 mg/dL (75-99)
[2021-10-15] MEDS: ASPIRIN 81 MG PO SCH (08:27)
[2021-10-15] MEDS: CHOLECALCIFEROL 25 MCG (1000 IU) TABLET PO SCH (08:27)
[2021-10-15] MEDS: FAMOTIDINE 20 MG TAB PO SCH (08:27)
[2021-10-15] MEDS: ATORVASTATIN 80 MG TAB PO SCH (08:27)
[2021-10-15] MEDS: INSULIN ASPART (NovoLOG) 100 UNIT/ML VIAL SQ SCH ×4 (08:28→21:16)
[2021-10-15] MEDS: amLODIPine 5 MG TAB PO SCH ×2 (08:48→21:17)
--- NOTE | 2021-10-15 10:17 | P.PN ---
Progress Note - Text Progress Note Date: 10/15/21 Interval History: Patient was seen resting in bed and was directable and agreeable to speak with gag writer in his room. Patient has been noted to be eating. He is however continuing to report that he has not had any bowel movement and has been unable to urinate. He is reporting no suicidal or homicidal ideation, intention, and/or plan. He reports no auditory or visual hallucinations. He denies any paranoia but continues to report somatic delusions and delusions that his body is dying. He has been adherent with his medications and reports no significant side effects at this time. Mental Status Exam: General Appearance: Patient appears to be stated age is alert, directable, and cooperative. Behavior: Patient is calmly seated without any agitated behavior. Psychomotor activity appears slow today. Speech: Patient's speech is fluent and nonpressured. Monotone but more spon taneous. Mood/Affect: Mood is "I'm not feeling good, I can't pee or poop." Affect appears to be blunted. Suicidality/Homicidality: Patient denies having any suicidal or homicidal ideation intent or plan. Perceptions: Patient denies any visual hallucinations and denies any auditory hallucinations Though content/process: Patient is endorsing a cotard delusion of inner organs and bile. Memory and concentration: AOX3, grossly intact for the purposes of this session Judgment and insight: Poor Vital Signs Temp 98.4 F 10/15/21 07:01 Pulse 122 H 10/15/21 07:01 Resp 16 10/13/21 06:54 BP 99/68 10/15/21 08:48 Pulse Ox 97 10/15/21 07:01 Laboratory Results - Last 24 Hours 10/14/21 10/14/21 10/14/21 12:37 17:48 19:56 POC Glucose (mg/dL) 149 H 145 H 265 H POC Glu Broom Maker ID Alia Ludwig Racheal Shivers, [place] 10/15/21 07:41 POC Glucose (mg/dL) 144 H POC Glu Broom Maker ID Lila Rowland Assessment Schizoaffective Disorder, Depressive type Plan: -Patient continues to meet criteria for inpatient psychiatric admission for symptom stabilization and safety. Patient has signed adult voluntary form and medication consent and was placed in patient's chart. -Medications: Continue invega 9 mg at bedtime for schizoaffective disorder. Continue Remeron 45 mg at bedtime for depression/appetite stimulation Continue pepcid for reflux -When necessary Ativan and Haldol for agitation/aggression. -SW on board for discharge planning. Encouraged the patient to participate in milieu.
[2021-10-15 12:43] LABS: Glucose,Whole Blood 146 mg/dL (75-99)
[2021-10-15 17:31] LABS: Glucose,Whole Blood 161 mg/dL (75-99)
[2021-10-15 20:00] LABS: Glucose,Whole Blood 213 mg/dL (75-99)
[2021-10-15] MEDS: PALIPERIDONE 3 MG TAB.ER.24 PO SCH (21:17)
[2021-10-16 07:40] LABS: Glucose,Whole Blood 141 mg/dL (75-99)
[2021-10-16] MEDS: INSULIN ASPART (NovoLOG) 100 UNIT/ML VIAL SQ SCH ×4 (07:42→20:15)
[2021-10-16] MEDS: FAMOTIDINE 20 MG TAB PO SCH (07:43)
[2021-10-16] MEDS: CHOLECALCIFEROL 25 MCG (1000 IU) TABLET PO SCH (07:43)
[2021-10-16] MEDS: ASPIRIN 81 MG PO SCH (07:43)
[2021-10-16] MEDS: amLODIPine 5 MG TAB PO SCH ×2 (07:44→21:32)
[2021-10-16] MEDS: ATORVASTATIN 80 MG TAB PO SCH (07:44)
[2021-10-16] MEDS ORDERED: PALIPERIDONE IM 234 MG/1.5 ML SYG IM STA (10:24)
--- NOTE | 2021-10-16 11:54 | P.PN ---
Progress Note - Text Progress Note Date: 10/16/21 Interval History: Patient was seen resting in bed and was directable and agreeable to speak with literary writer in his room. The patient continues to express concern that he is having issues regarding his body. He states that he continues to feel like he is wasting away. Despite this, the patient has been noted to be eating meals and has been observed by staff to go to the restroom. The patient has been adherent with his medications and is not endorsing any significant side effects. He is currently not reporting any suicidal or homicidal ideation, intention, and/or plan. He is not reporting any auditory or visual hallucinations. The patient does have some slight abnormalities which not have been rechecked since 10/09/2021. Will order a recheck today. Mental Status Exam: General Appearance: Patient appears to be stated age is alert, directable, and cooperative. Behavior: Patient is calmly seated without any agitated behavior. Psychomotor activity appears normal today. Speech: Patient's speech is fluent and nonpressured. Monotone but spontaneous. Mood/Affect: Mood is "I'm not feeling good" Affect appears to be blunted. Suicidality/Homicidality: Patient denies having any suicidal or homicidal ideation intent or plan. Perceptions: Patient denies any visual hallucinations and denies any auditory hallucinations Though content/process: Patient is endorsing a cotard delusion of inner organs and bile. Memory and concentration: AOX3, grossly intact for the purposes of this session Judgment and insight: Poor Vital Signs Temp 97.4 F L 10/16/21 06:44 Pulse 118 H 10/16/21 07:46 Resp 16 10/16/21 06:44 BP 123/78 10/16/21 07:46 Pulse Ox 97 10/15/21 07:01 Laboratory Results - Last 24 Hours 10/15/21 10/15/21 10/15/21 12:42 17:29 19:56 POC Glucose (mg/dL) 146 H 161 H 213 H POC Glu Director Of Events ID Cornel Jimenez Alynne Burgess, Melissa 10/16/21 07:39 POC Glucose (mg/dL) 141 H POC Glu Director Of Events ID Shayna Pratt Plan: -Patient continues to meet criteria for inpatient psychiatric admission for symptom stabilization and safety. Patient has signed adult voluntary form and medication consent and was placed in patient's chart. -We will reorder CBC and CMP to address that the patient continues to express any electrolyte abnormalities. -Medications: Continue invega 9 mg at bedtime for schizoaffective disorder. We will order Invega Sustenna 234 mg IM to be administered tonight after review of the patient's electrolytes. Continue Remeron 45 mg at bedtime for depression/appetite stimulation Continue pepcid for reflux -When necessary Ativan and Haldol for agitation/aggression. -SW on board for discharge planning. Encouraged the patient to participate in milieu.
[2021-10-16 11:57] LABS: Basophils # (A) 0.1 k/uL (0-0.2); Basophils % (A) 1 %; Eosinophils # (A) 0.1 k/uL (0-0.7); Eosinophils % (A) 1 %; HCT 44.4 % (39.0-53.0); HGB 15.7 gm/dL (13.0-17.5); Lymphocytes # (A) 1.5 k/uL (1.0-4.8); Lymphocytes % (A) 12 %; MCH 32.6 pg (25.0-35.0); MCHC 35.4 g/dL (31.0-37.0); Mean Platelet Volume 8.7; Monocytes # (A) 0.8 k/uL (0-1.0); Monocytes % (A) 7 %; Neutrophils # (A) 9.8 k/uL (1.3-7.7); Neutrophils % (A) 78 %; Platelet Count 200 k/uL (150-450); RBC 4.83 m/uL (4.30-5.90); RDW 12.3 % (11.5-15.5); WBC 12.6 k/uL (3.8-10.6)
[2021-10-16 12:25] LABS: Albumin 3.9 g/dL (3.5-5.0); Calcium 9.5 mg/dL (8.4-10.2); Potassium 4.2 mmol/L (3.5-5.1); Total Bilirubin 1.8 mg/dL (0.2-1.3); Total Protein 7.1 g/dL (6.3-8.2)
[2021-10-16 12:47] LABS: Glucose,Whole Blood 124 mg/dL (75-99)
[2021-10-16] MEDS ORDERED: PALIPERIDONE IM 234 MG/1.5 ML SYG IM ONE (17:00)
[2021-10-16 17:45] LABS: Glucose,Whole Blood 173 mg/dL (75-99)
[2021-10-16 20:02] LABS: Glucose,Whole Blood 173 mg/dL (75-99)
[2021-10-16] MEDS: MIRTAZAPINE 45 MG TABLET PO SCH (21:32)
[2021-10-16] MEDS: PALIPERIDONE 3 MG TAB.ER.24 PO SCH (21:32)
[2021-10-17 06:57] VITALS: BP 115/80; PULSE 111; TEMP 97.7
[2021-10-17 07:50] LABS: Glucose,Whole Blood 234 mg/dL (75-99)
[2021-10-17] MEDS: INSULIN ASPART (NovoLOG) 100 UNIT/ML VIAL SQ SCH ×2 (07:51→12:53)
[2021-10-17] MEDS: CHOLECALCIFEROL 25 MCG (1000 IU) TABLET PO SCH (08:13)
[2021-10-17] MEDS: FAMOTIDINE 20 MG TAB PO SCH (08:13)
[2021-10-17] MEDS: ASPIRIN 81 MG PO SCH (08:13)
[2021-10-17] MEDS: ATORVASTATIN 80 MG TAB PO SCH (08:13)
[2021-10-17] MEDS: amLODIPine 5 MG TAB PO SCH (08:13)
[2021-10-17 13:04] LABS: Glucose,Whole Blood 164 mg/dL (75-99)
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
== END 2021-10-17 13:20 | disposition home or self-care (01) | DRG 885 ==
LOC: 3MHU 21:19
PROVIDERS: ADMIT Psychiatry & Neurology Psychiatry; ATTEND Psychiatry & Neurology Psychiatry
DX: F25.1 Schizoaffective disorder, depressive type (principal); N17.9 Acute kidney failure, unspecified; E87.1 Hypo-osmolality and hyponatremia; I13.0 Hypertensive heart and chronic kidney disease with heart failure and stage 1 through stage 4 chronic kidney disease, or unspecified chronic kidney disease; I45.89 Other specified conduction disorders; E11.22 Type 2 diabetes mellitus with diabetic chronic kidney disease; N18.2 Chronic kidney disease, stage 2 (mild); E78.5 Hyperlipidemia, unspecified; R10.9 Unspecified abdominal pain; I50.9 Heart failure, unspecified; K21.9 Gastro-esophageal reflux disease without esophagitis; T14.91XA Suicide attempt, initial encounter; X76.XXXA Intentional self-harm by smoke, fire and flames, initial encounter; Z79.899 Other long term (current) drug therapy; Z87.891 Personal history of nicotine dependence; Z71.89 Other specified counseling; Z56.0 Unemployment, unspecified; Z63.5 Disruption of family by separation and divorce; Z91.030 Bee allergy status; Z79.82 Long term (current) use of aspirin
CPT/HCPCS: 80053; 83036; 85025